=== PATIENT | female | born 1960 | race Caucasian/White ===

== ENCOUNTER 2017-05-04 10:19 | Day surgery (SDC) | payer BC ==
[2017-04-30 10:04] VITALS: BMI 31.4
[~2017-05-04 10:19] MED LIST: LACTATED RINGERS 1,000 ML IV SCH; LIDOCAINE 1% 20 ML VIAL (10MG/ML) FOR IV START INTRADERMA PRN
[2017-05-04] MEDS ORDERED: LACTATED RINGERS 1,000 ML IV ONE (10:42)
[2017-05-04 10:48] VITALS: RESP 18; TEMP 98.1
[2017-05-04 10:57] LABS: Basophils # (A) 0.1 k/uL (0-0.2); Basophils % (A) 1 %; Eosinophils # (A) 0.2 k/uL (0-0.7); Eosinophils % (A) 2 %; HCT 47.3 % (34.0-46.0); HGB 15.8 gm/dL (11.4-16.0); Lymphocytes # (A) 3.8 k/uL (1.0-4.8); Lymphocytes % (A) 34 %; MCHC 33.5 g/dL (31.0-37.0); MCV 86.7 fL (80.0-100.0); Mean Platelet Volume 8.6; Monocytes # (A) 0.4 k/uL (0-1.0); Monocytes % (A) 4 %; Neutrophils # (A) 6.3 k/uL (1.3-7.7); Neutrophils % (A) 58 %; Platelet Count 241 k/uL (150-450); RBC 5.46 m/uL (3.80-5.40); RDW 14.2 % (11.5-15.5)
[2017-05-04 11:07] LABS: Anion Gap 13 mmol/L; Blood Urea Nitrogen 8 mg/dL (7-17); Calcium 10.1 mg/dL (8.4-10.2); Carbon Dioxide 25 mmol/L (22-30); Chloride 105 mmol/L (98-107); Glucose 216 mg/dL (74-99); Sodium 143 mmol/L (137-145)
[2017-05-04] MEDS ORDERED: PROPOFOL 10 MG/ML 20 ML VIAL IV ONE (12:51)
--- NOTE | 2017-05-04 13:20 | P.OP ---
Date of Procedure: 05/04/17 Preoperative Diagnosis: Change in bowel habits, blood per rectum Postoperative Diagnosis: Scattered diverticuli, internal hemorrhoids, inflamed bowel Procedure(s) Performed: Colonoscopy with biopsies Anesthesia: MAC Surgeon: Lurdes Palafox Estimated Blood Loss (ml): 0 IV fluids (ml): 200 Pathology: other (Cold biopsy is 70 cm, 20cm, and right colon) Condition: stable Disposition: PACU Indications for Procedure: Change in bowel habits, mucus and stool, blood in stool Operative Findings: Inflamed bowel, diverticuli, internal hemorrhoids Description of Procedure: The patient was taken to the endoscopy suite and following sedation the right rectal exam was performed. She was placed in the left lateral decubitus position. Rectal exam patient was started of concern to tone no masses. Colonoscope was passed through the anus into the rectum. Was passed through the sigmoid colon up to splenic flexure transverse colon hepatic flexure right colon down to the area of the cecum. Approximately 12 8 minutes were taken to withdraw the scope from the cecum to the rectum. The mucosa appeared to be somewhat inflamed and boggy and a random biopsy was obtained at the area of the ileocecal valve. Following this is a scope was withdrawn careful observation of the mucosa did not reveal any polypoid lesions or other mucosal lesions of concern. The second random biopsy was obtained at 70 cm is again the mucosa. Boggy and somewhat inflamed. As the scope was withdrawn no lesions of concern were otherwise noted in the right colon or in the transverse colon. No other lesions of concern were noted in the left colon. The patient was noted to have some intermittent diverticuli in the sigmoid colon and again there was some bogginess and irritation of the colon and random biopsy was obtained at 20 cm. These were all cold biopsies. The scope was brought down into the rectum where it was retroflexed internal hemorrhoids were identified. No tumors or masses were identified. The patient was noted to have mucus throughout the colon. Impression/plan: 1. Await irritation of colon with some mucus throughout the colon 2. Diverticuli 3. Internal hemorrhoids Plan: 1. Await biopsies consider GI consultation with possible upper GI workup uncertain as to the etiology of the meat mucus 2. Conservative management of diverticuli 3. Somewhat large internal hemorrhoids will discuss with patient further therapy if she continues to have bleeding.
--- NOTE | 2017-05-04 13:21 | P.DS ---
Providers Attending physician: Lurdes Palafox Primary care physician: Crow Pollard Plan - Discharge Summary New Discharge Prescriptions: No Action Vitamin C 1 tab PO DAILY Vitamin B Complex 1 each PO DAILY Axis-3 Fatty Acids/Fish Oil [Fish Oil 1,000 mg Softgel] 1 each PO DAILY Iron (Unknown Dose) 1 tab PO DAILY Discharge Medication List Iron (Unknown Dose) 1 tab PO DAILY 04/30/17 [History] Axis-3 Fatty Acids/Fish Oil [Fish Oil 1,000 mg Softgel] 1 each PO DAILY [History] Vitamin B Complex 1 each PO DAILY 04/30/17 [History] Vitamin C 1 tab PO DAILY 04/30/17 [History] Follow up Appointment(s)/Referral(s): Lurdes Palafox MD [STAFF PHYSICIAN] - 1 Week Activity/Diet/Wound Care/Special Instructions: Do not drive today Discharge Disposition: HOME SELF-CARE
[2017-05-04 13:52] VITALS: BP 120/64; PULSE 80
== END 2017-05-04 14:13 | disposition home or self-care (01) ==
LOC: MERGE 10:19 → ORWHC2ENDO 10:19
PROVIDERS: ATTEND Surgery
DX: K63.5 Polyp of colon (principal); K57.30 Diverticulosis of large intestine without perforation or abscess without bleeding; K64.8 Other hemorrhoids; F17.200 Nicotine dependence, unspecified, uncomplicated; Z90.10 Acquired absence of unspecified breast and nipple
CPT/HCPCS: 81025; 88305; 80048; 85025; 45380; J2704

== ENCOUNTER 2017-05-08 01:25 | Emergency (ER) | payer BC ==
[2017-05-08] MEDS ORDERED: ORPHENADRINE 30 MG/ML 2 ML VIAL IVP STA (01:46)
[2017-05-08] MEDS ORDERED: ONDANSETRON 4 MG/2 ML VIAL IVP STA (01:46)
[2017-05-08] MEDS ORDERED: KETOROLAC 30 MG/ML 1 ML VIAL IVP STA ×2 (01:46→02:20)
[2017-05-08] MEDS ORDERED: SODIUM CHLORIDE 0.9% 1,000 ML IV STA ×2 (01:47→02:57)
--- NOTE | 2017-05-08 01:57 | ED ---
General Adult HPI - General Chief complaint: Abdominal Pain Stated complaint: flank pain Time Seen by Provider: 05/08/17 01:35 Source: patient, RN notes reviewed Mode of arrival: wheelchair Limitations: no limitations - History of Present Illness Initial comments: This is a 56-year-old female who presents to the emergency department with chief complaint of right flank pain. Patient states that she has been experiencing right flank pain for the past 3 days and that it has progressively worsened in intensity. Patient states the pain is positional, increasing with movement and lying down. Patient states that the pain radiates to her upper abdomen. She denies any urinary symptoms such as dysuria, increased frequency or hematuria. She denies any recent injuries or falls. She does complain of associated nausea and vomiting. She states that she is been eating and drinking well. She states that she has had on and off diarrhea and constipation. Patient states that the pain is constant and is unable to describe it. On May 04 patient underwent a colonoscopy for a change in bowel habits and blood per rectum. She was given the postop diagnosis of diverticuli, inflamed bowel and internal hemorrhoids. Denies fever, chills, chest pain, shortness of breath, abdominal pain, numbness or tingling, headache or vision changes. - Related Data Home Medications Medication Instructions Recorded Confirmed Iron (Unknown Dose) 1 tab PO DAILY 04/30/17 05/04/17 Roberta-3 Fatty Acids/Fish Oil [Fish 1 each PO DAILY 04/30/17 05/04/17 Oil 1,000 mg Softgel] Vitamin B Complex 1 each PO DAILY 04/30/17 05/04/17 Vitamin C 1 tab PO DAILY 04/30/17 05/04/17 Previous Rx's Medication Instructions Recorded HYDROcodone/APAP 5-325MG [[place] 5] 1 each PO Q6HR PRN #12 tab 05/08/17 Ibuprofen 600 mg PO Q6HR #30 tablet 05/08/17 metFORMIN HCL [Glucophage] 500 mg PO BID #30 tab 05/08/17 Allergies Allergy/AdvReac Type Severity Reaction Status Date / Time No Known Allergies Allergy Verified 04/30/17 09:46 Review of Systems ROS Statement: Those systems with pertinent positive or pertinent negative responses have been documented in the HPI. ROS Other: All systems not noted in ROS Statement are negative. Past Medical History Past Medical History: Osteoarthritis (OA) Additional Past Medical History / Comment(s): BACK PAIN., STATES WT LOSS OF OVER 30 # IN THE LAST MONTH, FEELS FATIGUED & STOOLS HAVE MUCUS WITH BLOOD AND ABDOMINAL PAIN . STATES RECENT DIZZINESS ALSO. History of Any Multi-Drug Resistant Organisms: None Reported Past Surgical History: Back Surgery, Breast Surgery Additional Past Surgical History / Comment(s): PARTIAL RIGHT MASTECTOMY (FALSE POSITIVE) Past Anesthesia/Blood Transfusion Reactions: No Reported Reaction Past Psychological History: No Psychological Hx Reported Smoking Status: Current every day smoker Past Alcohol Use History: Rare Past Drug Use History: None Reported - Past Family History Daughter(s) Additional Family Medical History / Comment(s): PRE- OVARIAN CANCER General Exam - General Exam Comments Initial Comments: General: Awake and alert, well-developed; moaning and groaning throughout examination. Appears to be uncomfortable and in pain. Patient most comfortable sitting upright on the edge of ED stretcher. is at bedside. HEENT: Head atraumatic, normocephalic. Pupils are equal, round and reactive to light. Extraocular movements intact. Oropharynx moist without erythema or exudate. Neck: Supple. Normal ROM. No tenderness. Back: Tenderness on palpation of right flank. There is a tender myofascial nodule at right flank. Cardiovascular: Regular rate and rhythm. No murmurs, rubs or gallops. Chest symmetrical. Respiratory: Lungs clear to auscultation bilaterally. No wheezes, rales or rhonchi. Normal respiratory effort with no use of accessory muscles. Abdomen: Soft, non-tender, non-distended. No rigidity, rebound or guarding. Normal bowel sounds in all 4 quadrants. Musculoskeletal: Normal ROM, no tenderness bilateral upper and lower extremities. Ambulating hunched over due to back pain. Pedal pulses are 2+ equal and palpable bilaterally. Skin: [place], warm and dry without rashes or lesions. Neurological: Alert and oriented x3. CN II-XII grossly intact. Speech is fluent and answers are appropriate. No focal neuro deficits. Psychiatric: Normal mood and affect. No overt signs of depression or anxiety noted. Limitations: no limitations Course Vital Signs 05/08/17 05/08/17 01:30 03:19 Temperature 97.2 F L Pulse Rate 102 H 80 Respiratory 20 20 Rate Blood Pressure 138/87 131/88 O2 Sat by Pulse 96 97 Oximetry Medical Decision Making - Medical Decision Making This is a 56-year-old female who presents to the emergency department for evaluation of right flank pain. Patient denied any recent falls or injuries. She denied any urinary symptoms such as dysuria, hematuria or increased frequency. She did complain of associated nausea and vomiting. Denies any fever or chills. Pain is made worse with movement and lying down. CBC revealed a white count of 13.6 with a left shift at 8.0. Patient's lipase was 1608 and alkaline phosphatase 170 up from 154 on 04/14/2017. Patient is a glucose of 380. She denies any history of diabetes, however looking back on her previous labs patient has had a consistent elevation of glucose. She was given 2 L of normal saline as well as 6 units of Humulin. KUB of abdomen revealed no acute abnormalities. Lumbar spine x-ray revealed spondylotic changes with a possible cholesterol calcified gallstone. Computed tomography scan without contrast revealed cholelithiasis. Patient given fluid resuscitation and pain medication while in the emergency department. Patient appears significantly improved. She states that she feels much better. This case was discussed with attending physician Dr. Silverman who also evaluated the patient. She will be discharged home. Recommended follow-up with her primary care provider. Right flank pain appears to be in relation to a musculoskeletal issue as tenderness is localized and is positional. Lipase and alkaline phosphatase likely due to finding of cholelithiasis. Recommended patient be started on metformin for her chronic increased glucose. Patient is in agreement. She will be provided a prescription for the next 2 weeks until she is able to follow-up with her primary care provider. Patient is in no acute distress at this time. She is in agreement with plan and voices understanding. All questions were answered. - Lab Data Result diagrams: 05/08/17 01:50 05/08/17 01:50 Lab Results 05/08/17 05/08/17 05/08/17 Range/Units 01:50 01:50 02:16 WBC 13.6 H (3.8-10.6) k/uL RBC 5.01 (3.80-5.40) m/uL Hgb 14.7 (11.4-16.0) gm/dL Hct 44.9 (34.0-46.0) % MCV 89.7 (80.0-100.0) fL MCH 29.4 (25.0-35.0) pg MCHC 32.8 (31.0-37.0) g/dL RDW 12.6 (11.5-15.5) % Plt Count 209 (150-450) k/uL Neutrophils % 59 % Lymphocytes % 33 % Monocytes % 4 % Eosinophils % 2 % Basophils % 1 % Neutrophils # 8.0 H (1.3-7.7) k/uL Lymphocytes # 4.4 (1.0-4.8) k/uL Monocytes # 0.5 (0-1.0) k/uL Eosinophils # 0.3 (0-0.7) k/uL Basophils # 0.1 (0-0.2) k/uL Sodium 139 (137-145) mmol/L Potassium 4.0 (3.5-5.1) mmol/L Chloride 106 (98-107) mmol/L Carbon Dioxide 20 L (22-30) mmol/L Anion Gap 13 mmol/L BUN 7 (7-17) mg/dL Creatinine 0.60 (0.52-1.04) mg/dL Est GFR (MDRD) Af Amer >60 (>60 ml/min/1.73 sqM) Est GFR (MDRD) Non-Af >60 (>60 ml/min/1.73 sqM) Glucose 380 H (74-99) mg/dL POC Glucose (mg/dL) (75-99) mg/dL POC Glu Web Development Consultant ID Calcium 9.9 (8.4-10.2) mg/dL Total Bilirubin 0.3 (0.2-1.3) mg/dL AST 23 (14-36) U/L ALT 43 (9-52) U/L Alkaline Phosphatase 170 H (38-126) U/L Total Protein 6.9 (6.3-8.2) g/dL Albumin 4.2 (3.5-5.0) g/dL Amylase 55 (30-110) U/L Lipase 1608 H (23-300) U/L Urine Color Light Yellow Urine Appearance Clear (Clear) Urine pH 6.0 (5.0-8.0) Ur Specific [place] 1.019 (1.001-1.035) Urine Protein Negative (Negative) Urine Glucose (UA) 4+ H (Negative) Urine Ketones Negative (Negative) Urine Blood Negative (Negative) Urine Nitrite Positive H (Negative) Urine Bilirubin Negative (Negative) Urine Urobilinogen <2.0 (<2.0) mg/dL Ur Leukocyte Esterase Negative (Negative) Urine RBC <1 (0-5) /hpf Urine WBC 6 H (0-5) /hpf Ur Squamous Epith Cells 5 H (0-4) /hpf Urine Bacteria Moderate H (None) /hpf Urine Mucus Rare H (None) /hpf 05/08/17 Range/Units 03:06 WBC (3.8-10.6) k/uL RBC (3.80-5.40) m/uL Hgb (11.4-16.0) gm/dL Hct (34.0-46.0) % MCV (80.0-100.0) fL MCH (25.0-35.0) pg MCHC (31.0-37.0) g/dL RDW (11.5-15.5) % Plt Count (150-450) k/uL Neutrophils % % Lymphocytes % % Monocytes % % Eosinophils % % Basophils % % Neutrophils # (1.3-7.7) k/uL Lymphocytes # (1.0-4.8) k/uL Monocytes # (0-1.0) k/uL Eosinophils # (0-0.7) k/uL Basophils # (0-0.2) k/uL Sodium (137-145) mmol/L Potassium (3.5-5.1) mmol/L Chloride (98-107) mmol/L Carbon Dioxide (22-30) mmol/L Anion Gap mmol/L BUN (7-17) mg/dL Creatinine (0.52-1.04) mg/dL Est GFR (MDRD) Af Amer (>60 ml/min/1.73 sqM) Est GFR (MDRD) Non-Af (>60 ml/min/1.73 sqM) Glucose (74-99) mg/dL POC Glucose (mg/dL) 340 H (75-99) mg/dL POC Glu Web Development Consultant RITA Selina Ulrich Calcium (8.4-10.2) mg/dL Total Bilirubin (0.2-1.3) mg/dL AST (14-36) U/L ALT (9-52) U/L Alkaline Phosphatase (38-126) U/L Total Protein (6.3-8.2) g/dL Albumin (3.5-5.0) g/dL Amylase (30-110) U/L Lipase (23-300) U/L Urine Color Urine Appearance (Clear) Urine pH (5.0-8.0) Ur Specific [place] (1.001-1.035) Urine Protein (Negative) Urine Glucose (UA) (Negative) Urine Ketones (Negative) Urine Blood (Negative) Urine Nitrite (Negative) Urine Bilirubin (Negative) Urine Urobilinogen (<2.0) mg/dL Ur Leukocyte Esterase (Negative) Urine RBC (0-5) /hpf Urine WBC (0-5) /hpf Ur Squamous Epith Cells (0-4) /hpf Urine Bacteria (None) /hpf Urine Mucus (None) /hpf - Radiology Data Radiology results: report reviewed X-ray KUB impression: Nonacute abdomen. X-ray lumbar spine impression: Spondylotic changes in the lower lumbar spine. Possible cholesterol calcified gallstones. CT abdomen and pelvis without IV contrast impression: 1. Cholelithiasis. Consider right upper quadrant ultrasound as clinically warranted to evaluate for cholecystitis. 2. No evidence of renal stone. Disposition Clinical Impression: Cholelithiasis, Right flank pain Disposition: HOME SELF-CARE Condition: Good Instructions: Flank Pain (ED), Gallstones (ED) Additional Instructions: Please take medications as prescribed. Please follow up with primary care provider within 1-2 days. Return to emergency department if symptoms should worsen or any concerns arise. Prescriptions: HYDROcodone/APAP 5-325MG [[place] 5] 1 each PO Q6HR PRN #12 tab PRN Reason: Pain Ibuprofen 600 mg PO Q6HR #30 tablet metFORMIN HCL [Glucophage] 500 mg PO BID #30 tab Referrals: Crow Pollard MD [Primary Care Provider] - 1-2 days Time of Disposition: 03:54
[2017-05-08 02:00] LABS: Basophils # (A) 0.1 k/uL (0-0.2); Basophils % (A) 1 %; Eosinophils # (A) 0.3 k/uL (0-0.7); Eosinophils % (A) 2 %; HCT 44.9 % (34.0-46.0); HGB 14.7 gm/dL (11.4-16.0); Lymphocytes # (A) 4.4 k/uL (1.0-4.8); Lymphocytes % (A) 33 %; MCH 29.4 pg (25.0-35.0); MCHC 32.8 g/dL (31.0-37.0); MCV 89.7 fL (80.0-100.0); Mean Platelet Volume 7.8; Monocytes # (A) 0.5 k/uL (0-1.0); Monocytes % (A) 4 %; Neutrophils % (A) 59 %; Platelet Count 209 k/uL (150-450); RBC 5.01 m/uL (3.80-5.40); RDW 12.6 % (11.5-15.5); WBC 13.6 k/uL (3.8-10.6)
[2017-05-08 02:11] LABS: ALT 43 U/L (9-52); AST 23 U/L (14-36); Albumin 4.2 g/dL (3.5-5.0); Alkaline Phosphatase 170 U/L (38-126); Amylase 55 U/L (30-110); Anion Gap 13 mmol/L; Blood Urea Nitrogen 7 mg/dL (7-17); Calcium 9.9 mg/dL (8.4-10.2); Carbon Dioxide 20 mmol/L (22-30); Chloride 106 mmol/L (98-107); Glucose 380 mg/dL (74-99); Lipase 1608 U/L (23-300); Sodium 139 mmol/L (137-145); Total Bilirubin 0.3 mg/dL (0.2-1.3); Total Protein 6.9 g/dL (6.3-8.2)
--- NOTE | 2017-05-08 02:25 | XR ---
EXAMINATION TYPE: XR KUB DATE OF EXAM: 05/08/2017 COMPARISON: NONE HISTORY: Flank pain TECHNIQUE: 2 views FINDINGS: Bowel gas pattern is normal. There is no sign of intestinal obstruction or pneumoperitoneum . Fecal pattern is normal. There is no sign of a mass. I see no pathologic calcifications over the ki dneys. IMPRESSION: Nonacute abdomen.
--- NOTE | 2017-05-08 02:31 | XR ---
EXAMINATION TYPE: XR lumbar spine 2 or 3V DATE OF EXAM: 05/08/2017 COMPARISON: NONE HISTORY: Back pain TECHNIQUE: 3 views FINDINGS: lumbar vertebra have fairly normal alignment. There are some calcifications over the right upper quad rant could be calcified gallstones. There is narrowing of the L4-5 and L5-S1 disc spaces with spurrin g. There is no compression fracture. Sacroiliac joints are intact. There is possible right-sided lami nectomy at L4-L5. IMPRESSION: Spondylotic changes in the lower lumbar spine. Possible cholesterol calcified gallstones.
[2017-05-08 02:43] LABS: Appearance,Urine Clear (Clear); Bacteria,Urine Moderate /hpf; Bilirubin,Urine Negative (Negative); Blood,Urine Negative (Negative); Color,Urine Light Yellow; Glucose,Urine (UA) 4+ (Negative); Ketones,Urine Negative (Negative); Leukocyte Esterase,Urine Negative (Negative); Mucus,Urine Rare /hpf; Nitrite,Urine Positive (Negative); Protein,Urine Negative (Negative); RBC,Urine <1 /hpf (0-5); Specific Gravity,Urine 1.019 (1.001-1.035); Squamous Epithelial Cell,Urine 5 /hpf (0-4); Urobilinogen,Urine <2.0 mg/dL (<2.0); WBC,Urine 6 /hpf (0-5)
[2017-05-08] MEDS ORDERED: INSULIN REGULAR 100 UNIT/ML VIAL SQ ONE (02:55)
[2017-05-08] MEDS ORDERED: HYDROmorphone 0.5 MG/0.5 ML SYRINGE IVP STA (03:06)
[2017-05-08 03:09] LABS: Glucose,Whole Blood 340 mg/dL (75-99)
--- NOTE | 2017-05-08 03:23 | CT ---
EXAM: CT Abdomen and Pelvis Without Intravenous Contrast CLINICAL HISTORY: Reason: flank pain TECHNIQUE: Axial computed tomography images of the abdomen and pelvis without intravenous contrast. CTDI is 16.6 mGy and DLP is 772.4 mGy-cm. This CT exam was performed using one or more of the following dose reduction techniques: automated exposure control, adjustment of the mA and/or kV according to patient size, and/or use of iterative reconstruction technique. COMPARISON: None. FINDINGS: Lower thorax: No acute findings. ABDOMEN: Liver: Unremarkable. Gallbladder and bile ducts: Cholelithiasis. No ductal dilation. Pancreas: Unremarkable. No ductal dilation. Spleen: Unremarkable. No splenomegaly. Adrenals: Unremarkable. No mass. Kidneys and ureters: Unremarkable. No obstructing stones. No hydronephrosis. Stomach and bowel: Unremarkable. No obstruction. No mucosal thickening. Appendix: No findings to suggest acute appendicitis. PELVIS: Bladder: Unremarkable. No stones. Reproductive: Unremarkable as visualized. ABDOMEN and PELVIS: Intraperitoneal space: Unremarkable. No free air. No significant fluid collection. Bones/joints: No acute osseous abnormality. Multilevel degenerative disc disease and facet arthrosis is seen throughout the lumbar spine. No dislocation. Soft tissues: Unremarkable. Vasculature: Atherosclerotic calcifications seen throughout the abdominal aorta. No abdominal aortic aneurysm. Lymph nodes: Unremarkable. No enlarged lymph nodes. IMPRESSION: 1. Cholelithiasis. Consider right upper quadrant ultrasound as clinically warranted to evaluate for cholecystitis. 2. No evidence of renal stone.
[2017-05-08 03:54] LABS: Glucose,Whole Blood 271 mg/dL (75-99)
[2017-05-08 04:08] VITALS: BP 100/64; PULSE 76; RESP 18; TEMP 97.7
== END 2017-05-08 04:07 | disposition home or self-care (01) ==
LOC: EC 01:25
DX: K80.20 Calculus of gallbladder without cholecystitis without obstruction (principal); R10.11 Right upper quadrant pain; M47.816 Spondylosis without myelopathy or radiculopathy, lumbar region; R74.0 Nonspecific elevation of levels of transaminase and lactic acid dehydrogenase [LDH]; M62.89 Other specified disorders of muscle; R11.2 Nausea with vomiting, unspecified; R19.7 Diarrhea, unspecified; K59.00 Constipation, unspecified; F17.200 Nicotine dependence, unspecified, uncomplicated; Z79.899 Other long term (current) drug therapy; Z98.890 Other specified postprocedural states
CPT/HCPCS: 36415; 80053; 82150; 83690; 85025; 81001; 72100; 74018; 74176; 99285; 96374; 96375 ×3; 96376; 96361 ×2; J2360; J2405; J1885; J1170

== ENCOUNTER → 2017-05-17 | Outpatient (CLI) | payer BC ==
[2017-05-17 17:20] LABS: HCT 45.7 % (34.0-46.0); HGB 14.5 gm/dL (11.4-16.0); MCH 28.7 pg (25.0-35.0); MCHC 31.8 g/dL (31.0-37.0); MCV 90.4 fL (80.0-100.0); Mean Platelet Volume 8.3; Platelet Count 226 k/uL (150-450); RBC 5.05 m/uL (3.80-5.40); RDW 13.7 % (11.5-15.5); WBC 12.2 k/uL (3.8-10.6)
[2017-05-17 17:32] LABS: Albumin 4.3 g/dL (3.5-5.0); Bilirubin, Delta 0.2 mg/dL (0.0-0.2); Bilirubin,Unconjugated 0.1 mg/dL (0.0-1.1); Total Bilirubin 0.3 mg/dL (0.2-1.3); Total Protein 6.9 g/dL (6.3-8.2)
== END | disposition home or self-care (01) ==
LOC: LABWHC1 16:30
PROVIDERS: ATTEND Surgery
DX: R19.4 Change in bowel habit (principal)
CPT/HCPCS: 36415; 80076; 83690; 85027

== ENCOUNTER 2017-07-16 10:31 | Day surgery (SDC) | payer BC ==
[2017-07-15 08:35] VITALS: BMI 30.4
[~2017-07-16 10:31] MED LIST changes: +DEXAMETHASONE SOD PHOSPHATE 10 MG/ML 1 ML VIAL IV ONE; +HEPARIN SODIUM,PORCINE 5,000 UNIT/ML 1 ML VIAL SQ ONE; -LIDOCAINE 1% 20 ML VIAL (10MG/ML) FOR IV START INTRADERMA PRN; +MIDAZOLAM 2 MG/2 ML VIAL IV PRN; +ONDANSETRON 4 MG/2 ML VIAL IVP ONE; +SCOPOLAMINE 1.5MG/72HR PATCH TRANSDERM ONE; +ceFAZolin IN SWFI 2 GM/20 ML SYRINGE IVP ONE; +fentaNYL (PF) 50 MCG/ML 2 ML AMP IV PRN
--- NOTE | 2017-07-16 12:22 | P.GSHP ---
History of Present Illness H&P Date: 07/16/17 Chief Complaint: Right upper quadrant pain This a 56-year-old female who's had was run quadrant pain. Her recent CAT scan shows evidence of cholelithiasis. She will stay for laparoscopic ostectomy for subhepatic cholelithiasis and chronic cholecystitis. Past Medical History Past Medical History: Diabetes Mellitus, Hypertension, Osteoarthritis (OA) Additional Past Medical History / Comment(s): BACK PAIN., GALLBLADDER DISORDER History of Any Multi-Drug Resistant Organisms: None Reported Past Surgical History: Back Surgery, Breast Surgery, Orthopedic Surgery Additional Past Surgical History / Comment(s): PARTIAL RIGHT MASTECTOMY (FALSE POSITIVE), COLONOSCOPY, RT ROTATOR CUFF REPAIR Past Anesthesia/Blood Transfusion Reactions: No Reported Reaction Smoking Status: Current every day smoker - Past Family History Daughter(s) Additional Family Medical History / Comment(s): PRE- OVARIAN CANCER Medications and Allergies Home Medications Medication Instructions Recorded Confirmed Type Vitamin B Complex 1 each PO DAILY 04/30/17 07/15/17 History HYDROcodone/APAP 5-325MG [[place] 5] 1 each PO Q6HR PRN #12 tab 05/08/17 07/15/17 Rx metFORMIN HCL [Glucophage] 500 mg PO BID #30 tab 05/08/17 07/15/17 Rx Ascorbic Acid [Vitamin C] 500 mg PO DAILY 07/15/17 07/15/17 History Fish Oil/Dha/Epa [Fish Oil 1,200 2 tab PO DAILY 07/15/17 07/15/17 History mg Fish Oil] Insulin Degludec [Tresiba 10 unit SQ DAILY 07/15/17 07/15/17 History Flextouch U-100] Lisinopril [Zestril] 5 mg PO HS 07/15/17 07/15/17 History Zinc 50 mg PO DAILY 07/15/17 07/15/17 History Allergies Allergy/AdvReac Type Severity Reaction Status Date / Time bee venom protein (honey bee) Allergy Anaphylaxis Verified 07/15/17 08:28 Surgical - Exam - General well developed, no distress - Eyes PERRL - ENT normal pinna - Neck no masses - Respiratory normal expansion - Cardiovascular Rhythm: regular - Abdomen Abdomen: soft, non tender Assessment and Plan Assessment: Cholelithiasis We will perform laparoscopic cholecystectomy.
[2017-07-16 12:46] LABS: Glucose,Whole Blood 126 mg/dL (75-99)
[2017-07-16] MEDS ORDERED: LIDOCAINE 1% 20 ML VIAL (10MG/ML) FOR IV START INTRADERMA ONE (12:46)
[2017-07-16] MEDS ORDERED: GLYCOPYRROLATE 0.2 MG/ML 2 ML VIAL ONE (13:27)
[2017-07-16] MEDS ORDERED: ROCURONIUM BROMIDE 10 MG/ML 10 ML VIAL IV ONE (13:27)
[2017-07-16] MEDS ORDERED: LIDOCAINE 1% INJ 10MG/ML (20 ML MDV) ONE (13:27)
[2017-07-16] MEDS ORDERED: MIDAZOLAM 2 MG/2 ML VIAL ONE (13:27)
[2017-07-16] MEDS ORDERED: fentaNYL (PF) 50 MCG/ML 2 ML AMP ONE (13:27)
[2017-07-16] MEDS ORDERED: PROPOFOL 10 MG/ML 20 ML VIAL IV ONE (13:27)
[2017-07-16] MEDS ORDERED: NEOSTIGMINE 1 MG/ML 10 ML VIAL ONE (13:27)
[2017-07-16] MEDS ORDERED: SUCCINYLCHOLINE CHLORIDE 100 MG/5 ML SYR IV ONE (13:27)
[2017-07-16] MEDS ORDERED: BUPIVACAINE (PF) 0.25% 30 ML VIAL SQ ONE (13:35)
--- NOTE | 2017-07-16 13:58 | P.OP ---
Date of Procedure: 07/16/17 Preoperative Diagnosis: Cholecystitis Postoperative Diagnosis: Cholecystitis Procedure(s) Performed: Laparoscopic cholecystectomy Anesthesia: JANET Surgeon: Tramaine Burgos Estimated Blood Loss (ml): 5 Pathology: other (Gallbladder) Condition: stable Disposition: PACU Description of Procedure: The patient was placed on the operating table. The patient received a general endotracheal tube anesthesia. The patients abdomen was prepped and draped in the usual sterile fashion. Through an infraumbilical stab incision, the fascia of the anterior abdominal wall was grasped with a pair of Kochers and then the Veress needle was placed in the peritoneal cavity. Position of the Veress needle was confirmed with positive drop test. The abdomen was then insufflated. After adequate insufflation, the 10 mm trocar was placed in the peritoneal cavity. Following this the laparoscope was placed in the peritoneal cavity. The patient was placed in the head-up, right side up position and then a 5 mm trocar was placed in the right lateral and right subcostal position under direct visualization. A 8 mm trocar was placed in the epigastric position. The gallbladder was grasped in the fundus and infundibulum. Traction on the gallbladder was placed in the lateral and the cephalad positions. The triangle of Calot was visualized.. The cystic duct was bluntly dissected until the union of the cystic duct and common bile duct was seen. The cystic duct was then divided and sealed with the Harmonic scissors. A PDS Endoloop was then placed throughout the cystic duct stump. The cystic artery divided and sealed with the Harmonic scissors. The gallbladder was then removed from the liver bed using Harmonic scissors. The gallbladder was then extracted through the epigastric port site. Operative field was checked for any bleeding spots and Harmonic scissors was used to coagulate the liver bed. The abdomen was irrigated. The trocars were removed. The skin was closed using interrupted 3-0 Vicryl suture. Dermabond dressing were applied. The patient tolerated the procedure well.
[2017-07-16] MEDS ORDERED: KETOROLAC 30 MG/ML 1 ML VIAL IVP ONE (14:02)
[2017-07-16 14:04] VITALS: TEMP 97.2
[2017-07-16] MEDS: MEPERIDINE 50 MG/ML SYRINGE IVP ONE ×2 (14:07→14:22)
[2017-07-16] MEDS: diphenhydrAMINE 50 MG/ML 1 ML VIAL IVP ONE ×2 (14:11→14:22)
[2017-07-16 14:33] LABS: Glucose,Whole Blood 160 mg/dL (75-99)
[2017-07-16 15:45] VITALS: RESP 18
[2017-07-16] MEDS ORDERED: HYDROcodone/APAP 7.5-325MG 1 EACH TAB PO ONE (15:48)
[2017-07-16 16:26] VITALS: BP 132/84; PULSE 80
== END 2017-07-16 16:47 | disposition home or self-care (01) ==
LOC: OR 10:31
PROVIDERS: ATTEND Surgery
DX: K80.10 Calculus of gallbladder with chronic cholecystitis without obstruction (principal); E11.9 Type 2 diabetes mellitus without complications; I10 Essential (primary) hypertension; M19.90 Unspecified osteoarthritis, unspecified site; K21.9 Gastro-esophageal reflux disease without esophagitis; Z79.84 Long term (current) use of oral hypoglycemic drugs; Z79.4 Long term (current) use of insulin; Z79.899 Other long term (current) drug therapy; Z91.030 Bee allergy status; F17.210 Nicotine dependence, cigarettes, uncomplicated
CPT/HCPCS: 88304; 47562; J2250; J1200; J1100; J2710; J2175; J2405; J2001; J3010; J1885; J0330; J2704; J0690

== ENCOUNTER 2017-07-29 09:01 | Inpatient (IN) | payer BC ==
[2017-07-29] MEDS ORDERED: ONDANSETRON 4 MG/2 ML VIAL IVP STA (09:16)
[2017-07-29] MEDS ORDERED: SODIUM CHLORIDE 0.9% 2,000 ML IV STA (09:16)
[2017-07-29 09:42] LABS: Basophils # (A) 0.1 k/uL (0-0.2); Basophils % (A) 0 %; Eosinophils # (A) 0.1 k/uL (0-0.7); Eosinophils % (A) 1 %; HCT 42.9 % (34.0-46.0); HGB 15.2 gm/dL (11.4-16.0); Lymphocytes # (A) 3.4 k/uL (1.0-4.8); Lymphocytes % (A) 25 %; MCH 30.1 pg (25.0-35.0); MCHC 35.5 g/dL (31.0-37.0); MCV 84.7 fL (80.0-100.0); Mean Platelet Volume 7.9; Monocytes # (A) 0.5 k/uL (0-1.0); Monocytes % (A) 4 %; Neutrophils # (A) 9.5 k/uL (1.3-7.7); Neutrophils % (A) 69 %; Platelet Count 269 k/uL (150-450); RBC 5.07 m/uL (3.80-5.40); RDW 12.7 % (11.5-15.5); WBC 13.7 k/uL (3.8-10.6)
[2017-07-29 09:55] LABS: ALT 44 U/L (9-52); AST 28 U/L (14-36); Albumin 4.5 g/dL (3.5-5.0); Alkaline Phosphatase 137 U/L (38-126); Amylase 34 U/L (30-110); Anion Gap 18 mmol/L; Blood Urea Nitrogen 18 mg/dL (7-17); Calcium 10.5 mg/dL (8.4-10.2); Carbon Dioxide 22 mmol/L (22-30); Chloride 100 mmol/L (98-107); Glucose 212 mg/dL (74-99); Lipase 102 U/L (23-300); Potassium 3.5 mmol/L (3.5-5.1); Sodium 140 mmol/L (137-145); Total Bilirubin 0.6 mg/dL (0.2-1.3); Total Protein 7.2 g/dL (6.3-8.2)
[2017-07-29] MEDS ORDERED: MORPHINE SULFATE 4MG/4ML SYRG IVP ONE (10:12)
[2017-07-29] MEDS ORDERED: KETOROLAC 30 MG/ML 1 ML VIAL IVP STA (10:12)
--- NOTE | 2017-07-29 10:19 | XR ---
EXAMINATION TYPE: XR chest 2V DATE OF EXAM: 07/29/2017 COMPARISON: 02/16/2009 TECHNIQUE: PA and lateral views submitted. HISTORY: Pain FINDINGS: The lungs are clear and there is no pneumothorax, pleural effusion, or focal pneumonia. There is a irregular nodular density in the right upper lobe measuring 7 mm. Hyperinflation suggests COPD. Hyper trophic and degenerative change of the spine noted. Surgical clips are seen overlying the right breas t and chest wall. IMPRESSION: 1. Findings are suspicious for an irregular 7 mm nodule right upper lobe recommend CT scan of the [facility] st...
--- NOTE | 2017-07-29 10:20 | XR ---
EXAMINATION TYPE: XR KUB DATE OF EXAM: 07/29/2017 COMPARISON: 05/08/2017 HISTORY: Abdominal pain, nausea and vomiting TECHNIQUE: One view abdominal series FINDINGS: The osseous structures are intact. The bowel gas pattern is nonspecific. Lung bases are clear. Punct ate calcification overlying the lower pole the left kidney. Sclerosis involving the SI joint suggesti ve of sacroiliitis. Hypertrophic changes of the acetabulum. Prominent small bowel loops are seen in t he left abdomen. IMPRESSION: 1. Nonspecific abdomen. Paucity of bowel gas with prominent small bowel loops in the left abdomen an d pelvis. Correlate for an enteritis or ileus. Partial obstruction not entirely excluded.
[2017-07-29] MEDS ORDERED: RX INFO: IV CONTRAST WAS GIVEN 1 EACH MISC MISCELLANE PRN (10:27)
--- NOTE | 2017-07-29 11:14 | CT ---
EXAMINATION TYPE: CT chest angio for PE DATE OF EXAM: 07/29/2017 COMPARISON: NONE HISTORY: Patient complains of epigastric pain. CT DLP: 307 mGycm. Automated Exposure Control for Dose Reduction was Utilized. CONTRAST: CTA scan of the thorax is performed with IV Contrast, patient injected with 100 mL of Isovue 370, pul monary embolism protocol. MIP Images are created on CT scanner and reviewed. FINDINGS: LUNGS: Mild paraseptal emphysematous changes are seen of the lung apices. Scattered areas of subsegme ntal atelectasis are present throughout the lungs most pronounced dependently. The lungs are grossly clear, there is no concerning parenchymal mass or nodule identified. There is no pleural effusion o r pneumothorax seen. The tracheobronchial tree is patent. MEDIASTINUM: There is satisfactory enhancement of the pulmonary artery and its branches, there is no CT evidence for pulmonary embolism. There are no greater than 1 cm hilar or mediastinal lymph nodes. No cardiomegaly or pericardial effusion is seen. OTHER: Surgical clips are noted within the right breast. Osseous structures demonstrate mild multilev el degenerative changes of the thoracic spine. IMPRESSION: 1. No evidence of pulmonary embolus. 2. Mild paraseptal changes and scattered areas of subsegmental atelectasis.
--- NOTE | 2017-07-29 11:24 | CT ---
EXAMINATION TYPE: CT abdomen pelvis w con DATE OF EXAM: 07/29/2017 HISTORY: Patient complains of epigastric pain. CT DLP: 1512.2mGycm Automated Exposure Control for Dose Reduction was Utilized. CONTRAST: CT scan of the abdomen and pelvis is performed with IV Contrast, patient injected with 100 mL of Isov ue 370. COMPARISON: 05/08/2017 FINDINGS: LUNG BASES: Discussed on the CT thorax dictation of the same date LIVER/GB: There is a hypoattenuated ill-defined 1.9 cm hepatic lesion on series 6 image 26, which is not definitely seen on the noncontrast prior exam of 05/08/2017. Additional punctate 6 mm hepatic lesi on within segment 6 is unchanged in the prior and is favored to represent a small hepatic cyst althou gh too small to accurately characterize. No intrahepatic biliary ductal dilatation. Gallbladder is ei ther markedly contracted or surgically absent although no cholecystectomy clips are seen within the r ight upper quadrant. Calculus was seen within the gallbladder on the prior exam and is no longer evid ent and therefore the gallbladder may have been removed. PANCREAS: No significant abnormality is seen. SPLEEN: No significant abnormality is seen. ADRENALS: Approximately 1.4 cm right adrenal gland nodule of the angel situated adjacent to the vena c bhargavi does not demonstrate Hounsfield units of a 9 adenoma and is indeterminate. Left adrenal gland dem onstrates 2 nodules measuring 1.4 and 1.7 cm that have similar characteristics to the right adrenal g land nodule. KIDNEYS: The kidneys enhance and excrete symmetrically. BOWEL: No bowel dilatation is seen to suggest obstruction slight thickening of the hepatic flexure o f the colon may relate to incomplete distention or mild colitis (coronal series 10 image 43). UTERUS/ADNEXA: No gross abnormality seen. LYMPH NODES: No greater than 1cm abdominal or pelvic lymph nodes are appreciated. OSSEOUS STRUCTURES: No significant abnormality is seen. Mild multilevel degenerative changes of the t horacolumbar spine as visualized are noted. OTHER: Subcentimeter fat filled periumbilical hernia is noted. Moderate calcific and noncalcific athe romatous plaquing is seen in the abdominal aorta and its branches. IMPRESSION: 1. Mild thickening of the hepatic flexure may relate to incomplete distention or mild colitis. 2. Indeterminate right hepatic lesion given the presumed patient's history of breast cancer with a ri ght breast surgical clips could represent a metastatic focus and further evaluation with dynamic enha nced MR abdomen is recommended. 3. Bilateral adrenal gland nodules are also indeterminate and could be further evaluated on the above recommended MRI.
--- NOTE | 2017-07-29 11:53 | ED ---
Abdominal Pain HPI - General Chief Complaint: Abdominal Pain Stated Complaint: Vomiting Time Seen by Provider: 07/29/17 09:16 Source: patient, family, RN notes reviewed Mode of arrival: wheelchair Limitations: no limitations - History of Present Illness Initial Comments: 56-year-old female presented emergency department complaint nausea vomiting. Patient had cholecystectomy [address] Burgos. Patient states that the last week has been miserable did follow-up in office in which he told her it was just course of treatment. Patient states that she's getting worse last 2 days nothing to your drink. She states she feels dehydrated she does complain of epigastric pain. She does complain of diarrhea. Denies fever, chills. No shortness of breath and orthopnea no dysuria, hematuria - Related Data Home Medications Medication Instructions Recorded Confirmed Insulin Degludec [Tresiba 15 unit SQ HS 07/15/17 07/29/17 Flextouch U-100] Lisinopril [Zestril] 5 mg PO HS 07/15/17 07/29/17 Omeprazole 40 mg PO DAILY 07/29/17 07/29/17 Ondansetron [Zofran] 4 mg PO TID PRN 07/29/17 07/29/17 Previous Rx's Medication Instructions Recorded metFORMIN HCL [Glucophage] 500 mg PO BID #30 tab 05/08/17 Allergies Allergy/AdvReac Type Severity Reaction Status Date / Time bee venom protein (honey bee) Allergy Anaphylaxis Verified 07/29/17 09:10 Review of Systems ROS Statement: Those systems with pertinent positive or pertinent negative responses have been documented in the HPI. ROS Other: All systems not noted in ROS Statement are negative. Past Medical History Past Medical History: Diabetes Mellitus, Hypertension, Osteoarthritis (OA) Additional Past Medical History / Comment(s): BACK PAIN., GALLBLADDER DISORDER History of Any Multi-Drug Resistant Organisms: None Reported Past Surgical History: Back Surgery, Breast Surgery, Cholecystectomy, Orthopedic Surgery Additional Past Surgical History / Comment(s): PARTIAL RIGHT MASTECTOMY (FALSE POSITIVE), COLONOSCOPY, RT ROTATOR CUFF REPAIR Past Anesthesia/Blood Transfusion Reactions: No Reported Reaction Past Psychological History: No Psychological Hx Reported Smoking Status: Current every day smoker Past Alcohol Use History: None Reported Past Drug Use History: None Reported - Past Family History Daughter(s) Additional Family Medical History / Comment(s): PRE- OVARIAN CANCER General Exam Limitations: no limitations General appearance: alert, in no apparent distress Head exam: Present: atraumatic, normocephalic, normal inspection Eye exam: Present: normal appearance, PERRL, EOMI. Absent: scleral icterus, conjunctival injection, periorbital swelling ENT exam: Present: normal exam, normal oropharynx, mucous membranes moist Neck exam: Present: normal inspection, full ROM. Absent: tenderness, meningismus, lymphadenopathy Respiratory exam: Present: normal lung sounds bilaterally. Absent: respiratory distress, wheezes, rales, rhonchi, stridor Cardiovascular Exam: Present: normal rhythm, tachycardia, normal heart sounds. Absent: systolic murmur, diastolic murmur, rubs, gallop, clicks GI/Abdominal exam: Present: soft, tenderness (Epigastric), normal bowel sounds. Absent: distended, guarding, rebound, rigid Back exam: Absent: CVA tenderness (R), CVA tenderness (L) Skin exam: Present: warm, dry, intact, normal color. Absent: rash Course Vital Signs 07/29/17 07/29/17 09:07 10:22 Temperature 97.0 F L Pulse Rate 106 H 75 Respiratory 18 22 Rate Blood Pressure 123/88 102/67 O2 Sat by Pulse 100 100 Oximetry Medical Decision Making - Lab Data Result diagrams: 07/29/17 09:23 07/29/17 09:23 Lab Results 07/29/17 07/29/17 07/29/17 Range/Units 09:23 09:23 09:23 WBC 13.7 H (3.8-10.6) k/uL RBC 5.07 (3.80-5.40) m/uL Hgb 15.2 (11.4-16.0) gm/dL Hct 42.9 (34.0-46.0) % MCV 84.7 (80.0-100.0) fL MCH 30.1 (25.0-35.0) pg MCHC 35.5 (31.0-37.0) g/dL RDW 12.7 (11.5-15.5) % Plt Count 269 (150-450) k/uL Neutrophils % 69 % Lymphocytes % 25 % Monocytes % 4 % Eosinophils % 1 % Basophils % 0 % Neutrophils # 9.5 H (1.3-7.7) k/uL Lymphocytes # 3.4 (1.0-4.8) k/uL Monocytes # 0.5 (0-1.0) k/uL Eosinophils # 0.1 (0-0.7) k/uL Basophils # 0.1 (0-0.2) k/uL Sodium 140 (137-145) mmol/L Potassium 3.5 (3.5-5.1) mmol/L Chloride 100 (98-107) mmol/L Carbon Dioxide 22 (22-30) mmol/L Anion Gap 18 mmol/L BUN 18 H (7-17) mg/dL Creatinine 0.83 (0.52-1.04) mg/dL Est GFR (CKD-EPI)AfAm >90 (>60 ml/min/1.73 sqM) Est GFR (CKD-EPI)NonAf 80 (>60 ml/min/1.73 sqM) Glucose 212 H (74-99) mg/dL Plasma Lactic Acid Jesus 3.1 H* (0.7-2.0) mmol/L Calcium 10.5 H (8.4-10.2) mg/dL Total Bilirubin 0.6 (0.2-1.3) mg/dL AST 28 (14-36) U/L ALT 44 (9-52) U/L Alkaline Phosphatase 137 H (38-126) U/L Troponin I (0.000-0.034) ng/mL Total Protein 7.2 (6.3-8.2) g/dL Albumin 4.5 (3.5-5.0) g/dL Amylase 34 (30-110) U/L Lipase 102 (23-300) U/L 07/29/17 Range/Units 09:44 WBC (3.8-10.6) k/uL RBC (3.80-5.40) m/uL Hgb (11.4-16.0) gm/dL Hct (34.0-46.0) % MCV (80.0-100.0) fL MCH (25.0-35.0) pg MCHC (31.0-37.0) g/dL RDW (11.5-15.5) % Plt Count (150-450) k/uL Neutrophils % % Lymphocytes % % Monocytes % % Eosinophils % % Basophils % % Neutrophils # (1.3-7.7) k/uL Lymphocytes # (1.0-4.8) k/uL Monocytes # (0-1.0) k/uL Eosinophils # (0-0.7) k/uL Basophils # (0-0.2) k/uL Sodium (137-145) mmol/L Potassium (3.5-5.1) mmol/L Chloride (98-107) mmol/L Carbon Dioxide (22-30) mmol/L Anion Gap mmol/L BUN (7-17) mg/dL Creatinine (0.52-1.04) mg/dL Est GFR (CKD-EPI)AfAm (>60 ml/min/1.73 sqM) Est GFR (CKD-EPI)NonAf (>60 ml/min/1.73 sqM) Glucose (74-99) mg/dL Plasma Lactic Acid Jesus (0.7-2.0) mmol/L Calcium (8.4-10.2) mg/dL Total Bilirubin (0.2-1.3) mg/dL AST (14-36) U/L ALT (9-52) U/L Alkaline Phosphatase (38-126) U/L Troponin I <0.012 (0.000-0.034) ng/mL Total Protein (6.3-8.2) g/dL Albumin (3.5-5.0) g/dL Amylase (30-110) U/L Lipase (23-300) U/L Disposition Clinical Impression: Dehydration, Abdominal pain, Liver mass, Lactic acidosis, S/P cholecystectomy Disposition: ADMITTED IP TO THIS [facility] Condition: Fair Referrals: Corey Sandoval DO [Primary Care Provider] - 1-2 days
[2017-07-29] MEDS ORDERED: NALOXONE 0.4 MG/ML 1 ML VIAL IV PRN (11:54)
[2017-07-29] MEDS: MORPHINE SULF 5MG/10ML VL IV PRN ×2 (12:55→15:51)
[2017-07-29] MEDS: SODIUM CHLORIDE 0.9% 1,000 ML IV SCH (14:48)
[2017-07-29 17:16] LABS: Appearance,Urine Clear (Clear); Bilirubin,Urine Negative (Negative); Blood,Urine Negative (Negative); Color,Urine Yellow; Glucose,Urine (UA) Negative (Negative); Ketones,Urine 1+ (Negative); Leukocyte Esterase,Urine Negative (Negative); Mucus,Urine Rare /hpf; Nitrite,Urine Negative (Negative); PH, Urine 6.5 (5.0-8.0); Protein,Urine 1+ (Negative); RBC,Urine 2 /hpf (0-5); Squamous Epithelial Cell,Urine 4 /hpf (0-4); Urobilinogen,Urine <2.0 mg/dL (<2.0); WBC,Urine 1 /hpf (0-5)
[2017-07-29 17:19] LABS: Specific Gravity,Urine >1.050 (1.001-1.035)
[2017-07-29 17:46] LABS: Glucose,Whole Blood 137 mg/dL (75-99)
[2017-07-29] MEDS: INSULIN ASPART 100 UNIT/ML 1 ML 10 ML VIAL SQ SCH ×2 (17:50→21:16)
[2017-07-29] MEDS ORDERED: ONDANSETRON 4 MG TAB PO PRN (18:46)
[2017-07-29] MEDS: MORPHINE SULFATE 4MG/4ML SYRG IV PRN (20:04)
[2017-07-29] MEDS: NICOTINE 21MG/24HR PATCH TRANSDERM SCH (20:05)
[2017-07-29 20:29] LABS: Glucose,Whole Blood 146 mg/dL (75-99)
[2017-07-29] MEDS ORDERED: INSULIN DETEMIR 100 UNIT/ML 10 ML VIAL SQ SCH (21:00)
[2017-07-29] MEDS: LISINOPRIL 5 MG TAB PO SCH (21:21)
[2017-07-29] MEDS: ENOXAPARIN 40 MG/0.4 ML SYRINGE SQ SCH (22:03)
[2017-07-29] MEDS: cefTRIAXone IN SWFI 1,000 MG/10 ML SYRINGE IVP SCH (22:03)
--- NOTE | 2017-07-29 22:04 | HP ---
HISTORY AND PHYSICAL DATE OF ADMISSION: 07/29/2017 PRESENTING COMPLAINT: Epigastric pain. HISTORY OF PRESENTING COMPLAINT: This is a pleasant 56-year-old patient of Dr. Sandoval. Patient on July 16 underwent [address] by Dr[address] Burgos. For 2-3 days she was okay, then she started having increasing pain in the epigastric area and started having nausea, vomiting, had some chills, but no fever. Subsequently she started having 5 or 6 bowel movements a day. She saw Dr. Burgos in the office for about a week and was told that this was part of the healing process. The patient's pain has persisted, increasing and she is not feeling good and decided to finally come in, not able to feel good, not able to eat hardly anything, throwing up everything. No fevers recorded in the ER. The patient did have a CT scan in the ER that possible small lesions in the liver. The patient's chronic stable medical conditions include diabetes, GERD, hypertension, osteoarthritis, peripheral neuropathy. REVIEW OF SYSTEMS: CONSTITUTIONAL: Weak, tired. HEENT: None. RESPIRATORY: None. CARDIOVASCULAR: None. GASTROINTESTINAL: As above. GENITOURINARY: None. MUSCULOSKELETAL: Chronic back pain. DERMATOLOGICAL: None. HEMATOLOGICAL: None. NEUROLOGICAL: None. PAST HISTORY: Diabetes mellitus type 2, GERD, hypertension, osteoarthritis, peripheral neuropathy, especially in the lower extremity, back pain, hemorrhoids, diverticulosis. PAST SURGICAL HISTORY: Back surgery, breast surgery, cholecystectomy on 07/21/2017, partial right mastectomy, colonoscopy, right rotator cuff repair. SOCIAL HISTORY: Lives with her . Smoked less than a pack a day for over 30 years. Alcohol rarely. FAMILY HISTORY: Hyperlipidemia, hypertension. HOME MEDICATIONS: 1. Glucophage 500 mg p.o. b.i.d. 2. Zofran 4 mg p.o. t.i.d. p.r.n. 3. Omeprazole 40 mg p.o. daily. 4. Zestril 5 mg p.o. q.h.s. 5. Insulin Tresiba 15 units subcu q.h.s. ALLERGIES: BEE VENOM. EXAMINATION: Temperature 97, pulse 106, respirations 18, blood pressure 126/88, pulse ox 100% on room air. GENERAL APPEARANCE: Average build, lying in bed, very tired-appearing. EYES: Pupils equal. Conjunctivae normal. HEENT: External nose and ears normal. Oral cavity: Dry mucous membranes. NECK: JVD not raised. Mass not palpable. RESPIRATORY: Effort normal. LUNGS: Slight decreased breath sounds. CARDIOVASCULAR: First and second sounds normal. No edema. ABDOMEN: Upper abdomen tenderness in the epigastric right upper quadrant. No guarding, rigidity. Liver and spleen not palpable. Bowel sounds are present. LYMPHATIC: No lymph node palpable in neck or axillae. PSYCHIATRY: Alert and oriented x3. Mood and affect slightly anxious-appearing. NEUROLOGICAL: Pupils equal. Cranial nerve grossly intact. Power and sensation grossly intact. INVESTIGATIONS: White count 13.7, hemoglobin 15.2. Potassium 3.5, BUN 18, creatinine 0.83. Lactic acid is 3.1, repeat 1.3. UA negative for leuko esterase. CT of the abdomen and pelvis. There is a 1.9 cm hepatic lesion on CT 6. Gallbladder is not present and mild thickening of the hepatic flexure, nonspecific. ASSESSMENT: 1. This is a patient who on July 16 of this month underwent laparoscopic cholecystectomy by Dr. Burgos. After 4 days, patient started having increasing nausea, vomiting, diarrhea, some pain in the epigastric area. The patient had some chills, but no obvious fevers. The patient's white count is slightly elevated because of the diarrhea, which is 5 or 6 steps and need to rule out Clostridium difficile. Otherwise, any local infection needs to be ruled out. 2. Diabetes mellitus type 2 on oral hypoglycemic. 3. Gastroesophageal reflux disease. 4. Essential hypertension. 5. Primary osteoarthritis. 6. Peripheral neuropathy secondary to diabetes. 7. Chronic nicotine dependence. Patient is a cigarette smoker. 8. Diverticulosis. 9. Hepatic lesion for further workup. PLAN: Stool will be sent off for C. diff. If this is a local infection at the operative site, at the present time, we will put the patient on ceftriaxone. Consult Dr. Burgos. Give the patient IV fluids and Lovenox for DVT prophylaxis. We will also give patient a nicotine patch. Accu-Cheks will be followed, a sliding scale. The patient will be kept on ice chips. MMODL / IJN: [id number] /
[2017-07-29] MEDS: ACETAMINOPHEN TAB 325 MG TAB PO PRN (22:32)
[2017-07-30] MEDS: MORPHINE SULFATE 4MG/4ML SYRG IV PRN (01:03)
[2017-07-30] MEDS: SODIUM CHLORIDE 0.9% 1,000 ML IV SCH ×3 (04:03→20:19)
[2017-07-30 06:54] LABS: Glucose,Whole Blood 85 mg/dL (75-99)
[2017-07-30] MEDS: INSULIN ASPART 100 UNIT/ML 1 ML 10 ML VIAL SQ SCH ×4 (07:23→20:50)
[2017-07-30] MEDS: ONDANSETRON 4 MG/2 ML VIAL IVP PRN (07:45)
[2017-07-30] MEDS: ENOXAPARIN 40 MG/0.4 ML SYRINGE SQ SCH (07:47)
[2017-07-30] MEDS: NICOTINE 21MG/24HR PATCH TRANSDERM SCH (07:47)
[2017-07-30] MEDS: metFORMIN 500 MG TAB PO SCH ×2 (07:47→17:12)
[2017-07-30] MEDS: cefTRIAXone IN SWFI 1,000 MG/10 ML SYRINGE IVP SCH (07:47)
[2017-07-30] MEDS: PANTOPRAZOLE 40 MG TABLET PO SCH (07:47)
[2017-07-30] MEDS ORDERED: MORPHINE ORAL SOLN 10 MG/5 ML CUP PO PRN (08:06)
[2017-07-30 11:50] LABS: Glucose,Whole Blood 86 mg/dL (75-99)
[2017-07-30 11:56] LABS: ALT 41 U/L (9-52); AST 27 U/L (14-36); Albumin 3.2 g/dL (3.5-5.0); Alkaline Phosphatase 91 U/L (38-126); Anion Gap 10 mmol/L; Blood Urea Nitrogen 14 mg/dL (7-17); Carbon Dioxide 26 mmol/L (22-30); Chloride 108 mmol/L (98-107); Glucose 74 mg/dL (74-99); Potassium 3.6 mmol/L (3.5-5.1); Sodium 144 mmol/L (137-145); Total Bilirubin 0.2 mg/dL (0.2-1.3); Total Protein 5.5 g/dL (6.3-8.2)
[2017-07-30 12:04] LABS: Basophils # (A) 0.1 k/uL (0-0.2); Basophils % (A) 1 %; Eosinophils # (A) 0.2 k/uL (0-0.7); Eosinophils % (A) 2 %; HCT 36.5 % (34.0-46.0); HGB 12.4 gm/dL (11.4-16.0); Lymphocytes # (A) 4.7 k/uL (1.0-4.8); Lymphocytes % (A) 59 %; MCH 29.2 pg (25.0-35.0); MCV 85.8 fL (80.0-100.0); Mean Platelet Volume 8.1; Monocytes # (A) 0.4 k/uL (0-1.0); Monocytes % (A) 5 %; Neutrophils # (A) 2.4 k/uL (1.3-7.7); Neutrophils % (A) 30 %; Platelet Count 203 k/uL (150-450); RBC 4.25 m/uL (3.80-5.40); RDW 12.7 % (11.5-15.5)
--- NOTE | 2017-07-30 12:19 | P.GSCN ---
<Tresa Mckeon M - Last Filed: 07/30/17 11:53> History of Present Illness Consult date: 07/30/17 Reason for Consult: Abdominal pain History of present illness: 56-year-old female presented on the day of admission to the emergency room to be evaluated for chief complaint of nausea vomiting and persistent epigastric pain worse when trying to eat. Patient stated her symptoms have been ongoing for the last several weeks. did undergo a laparoscopic cholecystectomy by Dr. bryant July 16. Patient stated after the surgery developed midepigastric pain with persistent nausea vomiting and inability to keep any fluids down. Patient was seen in the office of last week to be evaluated for the above-mentioned symptoms. At that time told no further recommendations that this was to be expected patient additionally reports since April 14 17 has lost unintentionally 80 pounds with a decrease appetite her primary care provider according to the patient is working up the weight loss. Patient also states that she's been having loose stools accompanied by the nausea vomiting. Patient stated that she felt symptomatic presented to the emergency room because she felt dehydrated. Patient points to the midepigastric area as to the reference point states it radiates down to the left lower quadrant. He currently is stating the nausea sensation is improved is actually feeling hungry is requesting a diet In the emergency room a computed tomography scan of the chest to rule out pulmonary emboli showed no evidence of a pulmonary emboli no pleural effusion noted the lungs were grossly clear there was no concern for a mass or nodule additionally a CAT scan of the abdomen pelvis obtained in the emergency room reviewing the report showed mild thickening of the hepatic flexure which could relate to incomplete distention or mild colitis. Indeterminate right hepatic lesion could represent a metastatic focus. Recommending MRI of. Liver with and without contrast Past surgical history 07/16/2017 laparoscopic cholecystectomy for cholecystitis , colonoscopy done in April [address] Hodges. Also an EGD done in June by GI Dr. Hicks, several years ago patient is not certain of the date did have a right partial mastectomy false positive no evidence of cancer, right rotator cuff repair, orthopedic surgery. Past medical history diabetes, hypertension, osteoarthritis Patient is an current every day smoker Review of Systems Essentially unremarkable except as mentioned in the present illness Past Medical History Past Medical History: Diabetes Mellitus, GERD/Reflux, Hypertension, Osteoarthritis (OA) Additional Past Medical History / Comment(s): IDDM type II, peripheral neuropathy bilateral feet, back pain, hemorrhoids, diverticular dx, UTI History of Any Multi-Drug Resistant Organisms: None Reported Past Surgical History: Back Surgery, Breast Surgery, Cholecystectomy, Orthopedic Surgery Additional Past Surgical History / Comment(s): 04/2017 COLONOSCOPY, 07/16/17 [facility], PARTIAL RIGHT MASTECTOMY (FALSE POSITIVE), COLONOSCOPY, RT ROTATOR CUFF REPAIR Past Anesthesia/Blood Transfusion Reactions: No Reported Reaction Smoking Status: Current every day smoker - Past Family History Daughter(s) Additional Family Medical History / Comment(s): PRE- OVARIAN CANCER Mother Family Medical History: Hyperlipidemia, Hypertension Father Family Medical History: Diabetes Mellitus, Hyperlipidemia, Hypertension Medications and Allergies Home Medications Medication Instructions Recorded Confirmed Type metFORMIN HCL [Glucophage] 500 mg PO BID #30 tab 05/08/17 07/29/17 Rx Insulin Degludec [Tresiba 15 unit SQ HS 07/15/17 07/29/17 History Flextouch U-100] Lisinopril [Zestril] 5 mg PO HS 07/15/17 07/29/17 History Omeprazole 40 mg PO DAILY 07/29/17 07/29/17 History Ondansetron [Zofran] 4 mg PO TID PRN 07/29/17 07/29/17 History Allergies Allergy/AdvReac Type Severity Reaction Status Date / Time bee venom protein (honey bee) Allergy Anaphylaxis Verified 07/29/17 09:10 Surgical - Exam Vital Signs Temp Pulse Resp BP Pulse Ox 97.0 F L 106 H 18 123/88 100 07/29/17 09:07 07/29/17 09:07 07/29/17 09:07 07/29/17 09:07 07/29/17 09:07 GENERAL APPEARANCE: 56-year-old female resting in bed continues to report having mid epigastric pain radiating to the left lower quadrant alert, oriented , in no acute distress. VITAL SIGNS: Reviewed HEENT: Head is normocephalic and atraumatic. Pupils are equal and reactive. The nares are patent. Oropharynx is clear without lesions. NECK: Supple without lymphadenopathy. Traches midline. HEART: S1, S2. Regular rate and rhythm. Denying chest pain no murmur noted LUNGS: No crackles or wheezes are heard. Adequate air movement bilaterally on room air no cough noted ABDOMEN: Soft, mild tenderness to the mid epigastric area nondistended with good bowel sounds. No peritoneal signs. No palpable organomegaly or masses. States since being admitted no bowel movement urinating no difficulty EXTREMITIES: Normal skin color and turgor. No cyanosis, rash, ulceration, clubbing or edema. Radial pedal pulses are 2/4 bilaterally. NEUROLOGICAL: No focal deficits. Strength and sensation are grossly intact. Results - Labs 07/29/17 09:23 07/29/17 09:23 Abnormal Lab Results - Last 24 Hours (Table) 07/29/17 07/29/17 07/29/17 Range/Units 00:00 15:30 17:44 Chloride 108 H (98-107) mmol/L POC Glucose (mg/dL) 137 H (75-99) mg/dL Total Protein 5.5 L (6.3-8.2) g/dL Albumin 3.2 L (3.5-5.0) g/dL Ur Specific [place] >1.050 H (1.001-1.035) Urine Protein 1+ H (Negative) Urine Ketones 1+ H (Negative) Urine Mucus Rare H (None) /hpf 07/29/17 Range/Units 20:28 Chloride (98-107) mmol/L POC Glucose (mg/dL) 146 H (75-99) mg/dL Total Protein (6.3-8.2) g/dL Albumin (3.5-5.0) g/dL Ur Specific [place] (1.001-1.035) Urine Protein (Negative) Urine Ketones (Negative) Urine Mucus (None) /hpf Diabetes panel 07/29/17 Range/Units 00:00 Sodium 144 (137-145) mmol/L Potassium 3.6 (3.5-5.1) mmol/L Chloride 108 H (98-107) mmol/L Carbon Dioxide 26 (22-30) mmol/L BUN 14 (7-17) mg/dL Creatinine 0.65 (0.52-1.04) mg/dL Glucose 74 (74-99) mg/dL Calcium 9.0 (8.4-10.2) mg/dL AST 27 (14-36) U/L ALT 41 (9-52) U/L Alkaline Phosphatase 91 (38-126) U/L Total Protein 5.5 L (6.3-8.2) g/dL Albumin 3.2 L (3.5-5.0) g/dL Calcium panel 07/29/17 Range/Units 00:00 Calcium 9.0 (8.4-10.2) mg/dL Albumin 3.2 L (3.5-5.0) g/dL Pituitary panel 07/29/17 Range/Units 00:00 Sodium 144 (137-145) mmol/L Potassium 3.6 (3.5-5.1) mmol/L Chloride 108 H (98-107) mmol/L Carbon Dioxide 26 (22-30) mmol/L BUN 14 (7-17) mg/dL Creatinine 0.65 (0.52-1.04) mg/dL Glucose 74 (74-99) mg/dL Calcium 9.0 (8.4-10.2) mg/dL Adrenal panel 07/29/17 Range/Units 00:00 Sodium 144 (137-145) mmol/L Potassium 3.6 (3.5-5.1) mmol/L Chloride 108 H (98-107) mmol/L Carbon Dioxide 26 (22-30) mmol/L BUN 14 (7-17) mg/dL Creatinine 0.65 (0.52-1.04) mg/dL Glucose 74 (74-99) mg/dL Calcium 9.0 (8.4-10.2) mg/dL Total Bilirubin 0.2 (0.2-1.3) mg/dL AST 27 (14-36) U/L ALT 41 (9-52) U/L Alkaline Phosphatase 91 (38-126) U/L Total Protein 5.5 L (6.3-8.2) g/dL Albumin 3.2 L (3.5-5.0) g/dL Assessment and Plan Assessment: Impression Present on admission epigastric pain intractable nausea vomiting diarrhea with clinical dehydration suspect due to poor oral intake A recent laparoscopic cholecystectomy for cholelithiasis done 07/16/2017 History of a partial right mastectomy false positive no evidence of cancer Current every day smoker History of unintentional weight loss 80 pounds since March Colonoscopy done 05/04/2017 findings scattered diverticuli internal hemorrhoids inflamed bowel CAT scan abdomen and pelvis report indicates hepatic lesion not noted on prior exam in April 2017 CAT scan [facility] chest no evidence of a pulmonary emboli Type 2 diabetes Plan IV fluid for hydration Follow-up on labs Follow up on the MRI of the liver scheduled today Other surgical recommendations pending review of the CAT scan of abdomen and pelvis DVT and GI prophylaxis Antiemetics as ordered Pain control Surgical consultation note dictated for Dr. bernardo The above impression and plan of care have been discussed and directed by signing physician. Tresa Mckeon nurse practitioner acting as scribe for signing physician. <Lauryn Bernardo - Last Filed: 07/30/17 18:28> Surgical - Exam Vital Signs Temp Pulse Resp BP Pulse Ox 97.0 F L 106 H 18 123/88 100 07/29/17 09:07 07/29/17 09:07 07/29/17 09:07 07/29/17 09:07 07/29/17 09:07 Results - Labs 07/30/17 07:30 07/30/17 07:30 Abnormal Lab Results - Last 24 Hours (Table) 07/29/17 07/30/17 07/30/17 Range/Units 20:28 07:30 17:38 Chloride 108 H (98-107) mmol/L POC Glucose (mg/dL) 146 H 109 H (75-99) mg/dL Total Protein 5.5 L (6.3-8.2) g/dL Albumin 3.2 L (3.5-5.0) g/dL Diabetes panel 07/29/17 07/30/17 Range/Units 00:00 07:30 Sodium 144 (137-145) mmol/L Potassium 3.6 (3.5-5.1) mmol/L Chloride 108 H (98-107) mmol/L Carbon Dioxide 26 (22-30) mmol/L BUN 14 (7-17) mg/dL Creatinine 0.65 (0.52-1.04) mg/dL Glucose 74 (74-99) mg/dL Calcium 9.0 (8.4-10.2) mg/dL AST 27 (14-36) U/L ALT 41 (9-52) U/L Alkaline Phosphatase 91 (38-126) U/L Total Protein 5.5 L (6.3-8.2) g/dL Albumin 3.2 L (3.5-5.0) g/dL Calcium panel 07/29/17 07/30/17 Range/Units 00:00 07:30 Calcium 9.0 (8.4-10.2) mg/dL Albumin 3.2 L (3.5-5.0) g/dL Pituitary panel 07/29/17 07/30/17 Range/Units 00:00 07:30 Sodium 144 (137-145) mmol/L Potassium 3.6 (3.5-5.1) mmol/L Chloride 108 H (98-107) mmol/L Carbon Dioxide 26 (22-30) mmol/L BUN 14 (7-17) mg/dL Creatinine 0.65 (0.52-1.04) mg/dL Glucose 74 (74-99) mg/dL Calcium 9.0 (8.4-10.2) mg/dL Adrenal panel 07/29/17 07/30/17 Range/Units 00:00 07:30 Sodium 144 (137-145) mmol/L Potassium 3.6 (3.5-5.1) mmol/L Chloride 108 H (98-107) mmol/L Carbon Dioxide 26 (22-30) mmol/L BUN 14 (7-17) mg/dL Creatinine 0.65 (0.52-1.04) mg/dL Glucose 74 (74-99) mg/dL Calcium 9.0 (8.4-10.2) mg/dL Total Bilirubin 0.2 (0.2-1.3) mg/dL AST 27 (14-36) U/L ALT 41 (9-52) U/L Alkaline Phosphatase 91 (38-126) U/L Total Protein 5.5 L (6.3-8.2) g/dL Albumin 3.2 L (3.5-5.0) g/dL
[2017-07-30 13:36] VITALS: BMI 29.0
--- NOTE | 2017-07-30 15:39 | P.CONS ---
History of Present Illness - Reason for Consult Consult date: 07/29/17 Liver Lesion Requesting physician: Chay Powell - Chief Complaint Abdominal mid epigastric pain - History of Present Illness Mrs. Leyva is a 56-year-old female who presented to the emergency room for a chief complaint of nausea, vomiting and persistent epigastric pain. Increased symptoms with any PO intake. Symptoms presented a few weeks ago and was seen by her primary physician who referred her to Dr. Burgos where she underwent a laparoscopic cholecystectomy on July 16. She stated after the surgery is when the symptoms progressed and became intolerable. She admits to over an 80lb weight loss since March of 2017, decreased appetite, intermittent nausea and diarrhea that seems to be worse with eating. She has been following her PCP for these concerns. She presented to the emergency department for further workup this week because she felt weak and thought she may be dehydrated. Her abdominal pain was not relieved with norco at home. She describes the pain as very sharp, persistent, severe and radiating to her right side. Since hospitalization her nausea has improved and she was advanced on her diet. Although the pain appears to be severe again. Her initial work-up included CT Chest - failed to show evidence of PE, ant CT scan of the abdomen pelvis which revealed mild thickening of the hepatic flexure which could relate to incomplete distention or mild colitis. Review of Systems A 14 point review of systems assessed and completed and all negative except HPI Past Medical History Past Medical History: Diabetes Mellitus, GERD/Reflux, Hypertension, Osteoarthritis (OA) Additional Past Medical History / Comment(s): IDDM type II, peripheral neuropathy bilateral feet, back pain, hemorrhoids, diverticular dx, UTI History of Any Multi-Drug Resistant Organisms: None Reported Past Surgical History: Back Surgery, Breast Surgery, Cholecystectomy, Orthopedic Surgery Additional Past Surgical History / Comment(s): 04/2017 COLONOSCOPY, 07/16/17 [facility], PARTIAL RIGHT MASTECTOMY (FALSE POSITIVE), COLONOSCOPY, RT ROTATOR CUFF REPAIR Past Anesthesia/Blood Transfusion Reactions: No Reported Reaction Smoking Status: Current every day smoker - Past Family History Daughter(s) Additional Family Medical History / Comment(s): PRE- OVARIAN CANCER Mother Family Medical History: Hyperlipidemia, Hypertension Father Family Medical History: Diabetes Mellitus, Hyperlipidemia, Hypertension Medications and Allergies Home Medications Medication Instructions Recorded Confirmed Type metFORMIN HCL [Glucophage] 500 mg PO BID #30 tab 05/08/17 07/29/17 Rx Insulin Degludec [Tresiba 15 unit SQ HS 07/15/17 07/29/17 History Flextouch U-100] Lisinopril [Zestril] 5 mg PO HS 07/15/17 07/29/17 History Omeprazole 40 mg PO DAILY 07/29/17 07/29/17 History Ondansetron [Zofran] 4 mg PO TID PRN 07/29/17 07/29/17 History Allergies Allergy/AdvReac Type Severity Reaction Status Date / Time bee venom protein (honey bee) Allergy Anaphylaxis Verified 07/29/17 09:10 Physical Exam Vitals: Vital Signs Temp Pulse Resp BP Pulse Ox 07/30/17 08:00 72 16 07/30/17 07:00 97.6 F 72 16 101/67 95 07/29/17 22:33 98.3 F 69 16 92/45 97 07/29/17 16:00 76 18 Intake and Output 07/30/17 07/30/17 07/30/17 06:59 14:59 22:59 Intake Total 800 700 Balance 800 700 Intake: Intake, IV Titration 800 700 Amount Sodium Chloride 0.9% 1, 800 700 000 ml @ 100 mls/hr IV . Q10H [facility] Rx#:[id number] Other: Voiding Method Toilet Toilet Weight 81.647 kg - Constitutional General appearance: average body habitus, cooperative, no acute distress - EENT Eyes: PERRLA, dentition normal, normal appearance ENT: NA/AT, normal oropharynx - Neck Supple, Trachea Midline Neck: normal ROM - Respiratory Respiratory: bilateral: CTA (No increased effort noted) - Cardiovascular Rhythm: regular Heart sounds: normal: S1, S2 - Gastrointestinal General gastrointestinal: normal bowel sounds, soft, tenderness - Integumentary Integumentary: normal - Neurologic No focal deficits Neurologic: CNII-XII intact - Musculoskeletal Musculoskeletal: strength equal bilaterally - Psychiatric Psychiatric: A&O x's 3, appropriate affect, intact judgment & insight Results CBC & Chem 7: 07/30/17 07:30 07/30/17 07:30 Labs: Abnormal Lab Results - Last 24 Hours (Table) 07/29/17 07/29/17 07/29/17 Range/Units 15:30 17:44 20:28 Chloride (98-107) mmol/L POC Glucose (mg/dL) 137 H 146 H (75-99) mg/dL Total Protein (6.3-8.2) g/dL Albumin (3.5-5.0) g/dL Ur Specific [place] >1.050 H (1.001-1.035) Urine Protein 1+ H (Negative) Urine Ketones 1+ H (Negative) Urine Mucus Rare H (None) /hpf 07/30/17 Range/Units 07:30 Chloride 108 H (98-107) mmol/L POC Glucose (mg/dL) (75-99) mg/dL Total Protein 5.5 L (6.3-8.2) g/dL Albumin 3.2 L (3.5-5.0) g/dL Ur Specific [place] (1.001-1.035) Urine Protein (Negative) Urine Ketones (Negative) Urine Mucus (None) /hpf CT scan - abdomen: report reviewed CT scan - chest: report reviewed CT scan - pelvis: report reviewed Assessment and Plan (1) Hepatic lesion Current Visit: Yes Status: Acute Code(s): K76.9 - LIVER DISEASE, UNSPECIFIED SNOMED Code(s): 797298091 (2) Nausea & vomiting Current Visit: Yes Status: Acute Code(s): R11.2 - NAUSEA WITH VOMITING, UNSPECIFIED SNOMED Code(s): 87111270 (3) Weight loss Current Visit: Yes Status: Acute Code(s): R63.4 - ABNORMAL WEIGHT LOSS SNOMED Code(s): 76929091 (4) Decreased appetite Current Visit: Yes Status: Acute Code(s): R63.0 - ANOREXIA SNOMED Code(s) : 73106117 (5) Diarrhea Current Visit: Yes Status: Acute Code(s): R19.7 - DIARRHEA, UNSPECIFIED SNOMED Code(s): 09964325 (6) Abdominal pain Current Visit: Yes Status: Acute Code(s): R10.9 - UNSPECIFIED ABDOMINAL PAIN SNOMED Code(s): 18583832 (7) Dehydration Current Visit: Yes Status: Acute Code(s): E86.0 - DEHYDRATION SNOMED Code( s): 74291391 (8) S/P cholecystectomy Current Visit: Yes Status: Acute Code(s): Z90.49 - ACQUIRED ABSENCE OF OTHER SPECIFIED PARTS OF DIGESTIVE TRACT SNOMED Code(s): 797906418 Plan: Assessment and Recommendations: 1. Indeterminate Right Hepatic Lobe Lesion found on CT abdomen: - Warrants further worker with MRI, order placed 2. Bilateral Adrenal Gland Nodules - Uncertain Etiology - Further Diagnostic Imaging may be beneficial, would await results from MRI Liver 3. Intractable Abdominal Pain, worse with PO Intake - Uncertain the degree of pain would be related to the findings on CT. GI Following, ?Colitis patient is receiving IV antibiotics and Pain management 4. Nausea, Vomiting, and Diarrhea - Status Post Cholecystectomy. Consider obtaining stool studies. I have performed the complete history and physical of this patient, discussed with HEALTH AND SAFETY CONSULTANT, who has dictated strictly as scribe. Thank you for allowing us to participate in the care of your patient, further recs to follow after MRI completed.
--- NOTE | 2017-07-30 15:43 | P.PN ---
Subjective Progress Note Date: 07/30/17 Principal diagnosis: Hepatic Lesion Patient in acute distress when seen today, mother and family at bedside. She just received po morphine for pain but states it has made her pain worse at this time. She is having a difficult time speaking to me secondary to pain. Objective - Vital Signs Vital signs: Vital Signs Temp 97.9 F 07/30/17 15:00 Pulse 87 07/30/17 15:00 Resp 16 07/30/17 15:00 BP 101/64 07/30/17 15:00 Pulse Ox 96 07/30/17 15:00 Intake & Output 07/29/17 07/30/17 07/30/17 18:59 06:59 18:59 Intake Total 200 1150 700 Balance 200 1150 700 Weight 81.647 kg 81.647 kg Intake: Intake, IV Titration 1150 700 Amount Sodium Chloride 0.9% 1, 1150 700 000 ml @ 100 mls/hr IV . Q10H [facility] Rx#:[id number] Oral 200 Other: Voiding Method Toilet Toilet # Voids 1 - Constitutional General appearance: Present: average body habitus, mild distress - EENT Eyes: Present: EOMI, PERRLA, dentition normal ENT: Present: NA/AT, normal oropharynx - Neck Neck: Present: normal ROM - Respiratory Respiratory: bilateral: CTA (increased effort secondary to pain) - Cardiovascular Rhythm: regular Heart sounds: normal: S1, S2 - Gastrointestinal General gastrointestinal: Present: normal bowel sounds, soft, tenderness Localized gastrointestinal: tender: diffuse, guarding: diffuse, rebound: diffuse - Integumentary Integumentary: Present: normal - Neurologic Neurologic Comment(s): Nofocal defects Neurologic: Present: CNII-XII intact - Musculoskeletal Musculoskeletal: Present: generalized weakness - Psychiatric Psychiatric: Present: A&O x's 3, appropriate affect, intact judgment & insight - Labs CBC & Chem 7: 07/30/17 07:30 07/30/17 07:30 Labs: Abnormal Lab Results - Last 24 Hours (Table) 07/29/17 07/29/17 07/29/17 Range/Units 15:30 17:44 20:28 Chloride (98-107) mmol/L POC Glucose (mg/dL) 137 H 146 H (75-99) mg/dL Total Protein (6.3-8.2) g/dL Albumin (3.5-5.0) g/dL Ur Specific [place] >1.050 H (1.001-1.035) Urine Protein 1+ H (Negative) Urine Ketones 1+ H (Negative) Urine Mucus Rare H (None) /hpf 07/30/17 Range/Units 07:30 Chloride 108 H (98-107) mmol/L POC Glucose (mg/dL) (75-99) mg/dL Total Protein 5.5 L (6.3-8.2) g/dL Albumin 3.2 L (3.5-5.0) g/dL Ur Specific [place] (1.001-1.035) Urine Protein (Negative) Urine Ketones (Negative) Urine Mucus (None) /hpf Assessment and Plan (1) Hepatic lesion Current Visit: Yes Status: Acute Code(s): K76.9 - LIVER DISEASE, UNSPECIFIED SNOMED Code(s): 117557488 (2) Nausea & vomiting Current Visit: Yes Status: Acute Code(s): R11.2 - NAUSEA WITH VOMITING, UNSPECIFIED SNOMED Code(s): 08205180 (3) Weight loss Current Visit: Yes Status: Acute Code(s): R63.4 - ABNORMAL WEIGHT LOSS SNOMED Code(s): 88827749 (4) Decreased appetite Current Visit: Yes Status: Acute Code(s): R63.0 - ANOREXIA SNOMED Code(s) : 05913779 (5) Diarrhea Current Visit: Yes Status: Acute Code(s): R19.7 - DIARRHEA, UNSPECIFIED SNOMED Code(s): 14287375 (6) Abdominal pain Current Visit: Yes Status: Acute Code(s): R10.9 - UNSPECIFIED ABDOMINAL PAIN SNOMED Code(s): 18417141 (7) Dehydration Current Visit: Yes Status: Acute Code(s): E86.0 - DEHYDRATION SNOMED Code( s): 94179801 (8) S/P cholecystectomy Current Visit: Yes Status: Acute Code(s): Z90.49 - ACQUIRED ABSENCE OF OTHER SPECIFIED PARTS OF DIGESTIVE TRACT SNOMED Code(s): 647686152 Plan: Assessment and Recommendations: 1. Indeterminate Right Hepatic Lobe Lesion found on CT abdomen: - Warrants further worker with MRI, Outstanding still awaiting completion of exam 2. Bilateral Adrenal Gland Nodules - Uncertain Etiology - Further Diagnostic Imaging may be beneficial, would await results from MRI Liver 3. Intractable Abdominal Pain, worse with PO Intake - Uncertain the degree of pain would be related to the findings on CT. GI Following, ?Colitis patient is receiving IV antibiotics and Pain management. No signs of anemia, pancreatic enzymes within normal limits. 4. Nausea, Vomiting, and Diarrhea - Status Post Cholecystectomy. Consider obtaining stool studies. Continue supportive symptom management, GI recs. Thank you for allowing us to participate in the care of your patient, further recs to follow after MRI completed.
[2017-07-30] MEDS: MORPHINE SULFATE 4MG/4ML SYRG IVP PRN ×2 (16:10→20:11)
[2017-07-30] MEDS: ACETAMINOPHEN TAB 325 MG TAB PO PRN (17:01)
[2017-07-30 17:39] LABS: Glucose,Whole Blood 109 mg/dL (75-99)
--- NOTE | 2017-07-30 18:28 | P.PN ---
Progress Note - Text Progress Note Date: 07/30/17 Patient seen and evaluted. She has had multiple diagnostic work-up including upper and lower scope and laparoscopic cholecystectomy. She reports new character of pain within 3 days follow cholecystectomy less than [address] of the abdomen personally reviewed. She has just completed MRI. Final results are pending. Patient is concerned of her pancreas. At this time, no acute surgical intervention. Patient is tolerating a soft diet. She reports persistent epigatric pain. Incisions granulating without signs of infection. Will follow.
[2017-07-30 20:27] LABS: Glucose,Whole Blood 142 mg/dL (75-99)
--- NOTE | 2017-07-30 20:29 | PN ---
PROGRESS NOTE DATE OF SERVICE: 07/30/2017 PRESENTING COMPLAINT: Epigastric pain. INTERVAL HISTORY: This is a patient who had cholecystectomy by Dr. Burgos about 10 days ago. She presented with increasing epigastric pain with some leukocytosis. Patient was found to have a lesion on the liver, for which she did have a liver MRI. Patient has remained afebrile. I had empirically put the patient on ceftriaxone. She is still having epigastric pain. REVIEW OF SYSTEMS: Done for constitutional, cardiovascular, GI, pulmonary; relevant findings as above. CURRENT MEDICATIONS: Reviewed. They include IV ceftriaxone. PHYSICAL EXAMINATION: Temperature 97.6, pulse 72, respiration 16, blood pressure 101/67, pulse ox 95% on room air. GENERAL APPEARANCE: Lying in bed, tired-appearing. EYES: Pupils equal. Conjunctivae normal. HEENT: External appearance of nose and ears normal. Oral cavity normal. NECK: JVD not raised. Mass not palpable. RESPIRATORY: Effort normal. Lungs are clear. CARDIOVASCULAR: First and second sounds normal. No edema. ABDOMEN: Epigastric tenderness. No guarding or rigidity. Liver and spleen not palpable. PSYCHIATRY: Alert and oriented x3. Mood and affect normal. INVESTIGATIONS: White count 8, hemoglobin 12.4, potassium 3.6. BUN and creatinine are normal. LFTs are normal. ASSESSMENT: 1. This patient is status post cholecystectomy by Dr. Burgos with acute epigastric pain with some elevation of the white count and some diarrhea when she initially presented; could be postoperative inflammatory pain. She is empirically on IV ceftriaxone. 2. Diabetes mellitus, type 2, on oral hypoglycemic. 3. Gastroesophageal reflux disease. 4. Essential hypertension. 5. Primary osteoarthritis. 6. Peripheral neuropathy secondary to diabetes. 7. Chronic nicotine dependence. Patient is a cigarette smoker. 8. Diverticulosis. 9. Hepatic lesion. Getting MRI. PLAN: Continue current medication and treatment plan. Await further input from Surgery. Will get an ID opinion. MMODL / IJN: [id number] /
[2017-07-30] MEDS: LISINOPRIL 5 MG TAB PO SCH (20:50)
[2017-07-30] MEDS: TRESIBA 15 UNIT SQ SCH (20:51)
[2017-07-30] MEDS ORDERED: INSULIN DETEMIR 100 UNIT/ML 10 ML VIAL SQ SCH (21:00)
--- NOTE | 2017-07-30 23:04 | MR ---
EXAMINATION TYPE: MR liver wo/w con DATE OF EXAM: 07/30/2017 COMPARISON: CT without contrast 05/08/2017. CT with contrast 07/29/2017. HISTORY: 1.9 cm liver lesion. Adrenal lesions. TECHNIQUE: Departmental abdominal MRI liver multiplanar/multi sequence protocol with departmental dos ing of intravenous gadolinium contrast. FINDINGS: The 1.9 cm diameter liver lesion is T2 isointense to liver parenchyma and is hypovascular f ollowing intravenous gadolinium contrast delivery. The lesion is inconsistent with a diagnosis of cav ernous hemangioma or cyst, and secondary neoplasm cannot be excluded this point. Liver is otherwise u nremarkable. The adrenal glands appear to drop signal with opposed phase T1 gradient echo imaging, but there is pa tient motion artifact and difficulty in assessing this feature. There is no adenopathy. No skeletal lesions. No pulmonary lesions. Remainder of the abdominal examina tion is normal. IMPRESSION: 1. INDETERMINATE 1.9 CM DIAMETER LIVER LESION; MALIGNANCY NOT EXCLUDED AT THIS POINT IN THE IMAGING WORKUP. 2. LIMITED ADRENAL NODULE CHARACTERIZATION, BUT SUSPECT BENIGN ADENOMAS. Recommendation: The best characterization would be obtaining a prior contrast CT or MRI or ultrasound from another in stitution. If not available, then follow body PET CT characterization can BE used to further characte rize the liver lesion and the adrenal lesions. Alternatively, a targeted sonographic assessment of th e 1.9 cm diameter liver lesion, using high-resolution multiple technique sonographic imaging, can be complimentary.
[2017-07-31] MEDS: SODIUM CHLORIDE 0.9% 1,000 ML IV SCH ×2 (04:23→05:58)
[2017-07-31 07:20] LABS: Glucose,Whole Blood 123 mg/dL (75-99)
[2017-07-31] MEDS: PANTOPRAZOLE 40 MG TABLET PO SCH (07:58)
[2017-07-31] MEDS: MORPHINE SULFATE 4MG/4ML SYRG IVP PRN (08:13)
[2017-07-31] MEDS: NICOTINE 21MG/24HR PATCH TRANSDERM SCH (08:16)
[2017-07-31] MEDS: ENOXAPARIN 40 MG/0.4 ML SYRINGE SQ SCH (08:17)
[2017-07-31 08:19] VITALS: RESP 16
[2017-07-31] MEDS: cefTRIAXone IN SWFI 1,000 MG/10 ML SYRINGE IVP SCH (08:20)
[2017-07-31] MEDS: metFORMIN 500 MG TAB PO SCH ×2 (08:26→16:40)
[2017-07-31] MEDS: INSULIN ASPART 100 UNIT/ML 1 ML 10 ML VIAL SQ SCH ×4 (08:26→20:15)
[2017-07-31 11:32] LABS: Glucose,Whole Blood 126 mg/dL (75-99)
--- NOTE | 2017-07-31 15:01 | P.PN ---
Subjective Progress Note Date: 07/31/17 The patient is a 56-year-old female admitted secondary to dehydration and abdominal pain. She is status post cholecystectomy more than 2 weeks ago. She reports having an upper endoscopy at another facility. Separately she had a CT of the abdomen and pelvis demonstrating a questionable lesion on the liver. MRI results were described to her which is still inconclusive for the cause of liver lesion. She is tolerating diet. Objective - Vital Signs Vital signs: Vital Signs Temp 98.7 F 07/31/17 07:00 Pulse 69 07/31/17 08:00 Resp 16 07/31/17 08:00 BP 111/74 07/31/17 07:00 Pulse Ox 96 07/31/17 07:00 Intake & Output 07/30/17 07/31/17 07/31/17 18:59 06:59 18:59 Intake Total 700 1000 240 Balance 700 1000 240 Weight 81.647 kg Intake: IV 900 Sodium Chloride 0.9% 1, 900 000 ml @ 100 mls/hr IV . Q10H [facility] Rx#:[id number] Intake, IV Titration 700 Amount Sodium Chloride 0.9% 1, 700 000 ml @ 100 mls/hr IV . Q10H [facility] Rx#:[id number] Oral 100 240 Other: Voiding Method Toilet Toilet Toilet # Voids 1 2 - Exam GENERAL: Well developed and in no acute distress. Pleasant. HEENT: No sclera icterus. Extraocular movements grossly intact. Moist buccal mucosa. Head is atraumatic, normocephalic. Hears conversational speech. No nasal drainage. NECK: Supple without lymphadenopathy. No JV distention. CHEST: Non-labored respirations and equal bilateral excursions. CARDIOVASCULAR: Regular rate and rhythm. Palpable 2+ radial pulses. ABDOMEN: Soft. Nondistended. Mild tenderness along the epigastrium. No peritonitis. MUSCULOSKELETAL: No clubbing, cyanosis or edema. NEUROLOGIC: No focal or lateralizing signs. PSYCH: Appropriate affect. Alert and oriented to person, place and time. SKIN: Good skin turgor. Well perfused. - Labs CBC & Chem 7: 07/30/17 07:30 07/30/17 07:30 Labs: Abnormal Lab Results - Last 24 Hours (Table) 07/30/17 07/30/17 07/31/17 Range/Units 17:38 20:25 07:19 POC Glucose (mg/dL) 109 H 142 H 123 H (75-99) mg/dL 07/31/17 Range/Units 11:31 POC Glucose (mg/dL) 126 H (75-99) mg/dL - Imaging and Cardiology CT scan - abdomen: report reviewed, image reviewed CT scan - pelvis: report reviewed (All results were reviewed with 2 cm lesion of the liver. No pancreatic lesions identified. A small hiatal hernia is demonstrated in her computed tomography scan is reviewed by me), image reviewed MRI - abdomen: report reviewed, image reviewed Assessment and Plan (1) Hiatal hernia Current Visit: Yes Status: Acute Code(s): K44.9 - DIAPHRAGMATIC HERNIA WITHOUT OBSTRUCTION OR GANGRENE SNOMED Code(s): 01783743 (2) Epigastric pain Current Visit: Yes Status: Acute Code(s): R10.13 - EPIGASTRIC PAIN SNOMED Code(s): 14215495 (3) Abdominal pain Current Visit: Yes Status: Acute Code(s): R10.9 - UNSPECIFIED ABDOMINAL PAIN SNOMED Code(s): 39437073 (4) Dehydration Current Visit: Yes Status: Acute Code(s): E86.0 - DEHYDRATION SNOMED Code( s): 27814397 (5) Hepatic lesion Current Visit: Yes Status: Acute Code(s): K76.9 - LIVER DISEASE, UNSPECIFIED SNOMED Code(s): 577952344 (6) S/P cholecystectomy Current Visit: Yes Status: Acute Code(s): Z90.49 - ACQUIRED ABSENCE OF OTHER SPECIFIED PARTS OF DIGESTIVE TRACT SNOMED Code(s): 355967010 Plan: 1. I reviewed her findings on MRI and findings are still inconclusive. She may benefit from a liver biopsy if deemed necessary by oncology 2. Separately, her epigastric abdominal pain is consistent with her CT findings of a hiatal hernia. Additionally, hypertensive lower esophageal sphincter or diffuse esophageal spasm may cause similar symptoms. Will need outpatient manometry. 3. At this time, no acute surgical intervention. Management per medicine. 4. Patient was agreeable to follow up as outpatient regarding her hiatal hernia.
[2017-07-31 17:22] LABS: Glucose,Whole Blood 185 mg/dL (75-99)
[2017-07-31] MEDS: ONDANSETRON 4 MG/2 ML VIAL IVP PRN (17:44)
[2017-07-31 19:37] LABS: Glucose,Whole Blood 137 mg/dL (75-99)
--- NOTE | 2017-07-31 20:06 | PN ---
PROGRESS NOTE DATE OF SERVICE: 07/31/17. PRESENTING COMPLAINT: Epigastric pain. INTERVAL HISTORY: This patient is status post cholecystectomy by Dr. Burgos, presented with increasing epigastric pain following the surgery. Had a slight white count for which empirically I put the patient on ceftriaxone. Still having the epigastric pain. MRI has been inconclusive. The patient continues to have the pain per Dr. Rodas. She thinks the pain is from hiatal hernia. REVIEW OF SYSTEMS: Done for constitutional, cardiovascular, GI, pulmonary; relevant findings as above. CURRENT MEDICATIONS: Include IV ceftriaxone. PHYSICAL EXAMINATION: Temperature 98, pulse 85, respiration 16, blood pressure 109/79, pulse 96% on room air. GENERAL APPEARANCE: Lying in bed awake. EYES: Pupils equal. Conjunctivae normal. HEENT: External nose and ears normal. Oral cavity normal. NECK: JVD not raised. Mass not palpable. RESPIRATORY: Effort, lungs are clear. CARDIOVASCULAR: 1st and 2nd sounds normal. No edema. ABDOMEN: Epigastric tenderness. No guarding or rigidity. Liver and spleen not palpable. PSYCHIATRY: Alert and oriented x3. Mood and affect tired-appearing. INVESTIGATIONS: White count 8, potassium 3.6. AST, ALT is normal. ASSESSMENT: 1. Patient is status post cholecystectomy with epigastric pain, slight elevation of white count when she had come in that resolved. This pain could be postoperative inflammatory pain, non infectious. 2. Diabetes mellitus type 2 on oral hypoglycemic. 3. Gastroesophageal reflux disease. 4. Essential hypertension. 5. Primary osteoarthritis. 6. Peripheral neuropathy secondary to diabetes. 7. Chronic nicotine dependence in a cigarette smoker. 8. Diverticulosis. 9. 1.9 cm liver lesion. PLAN: Awaiting input from an ID. Will also get input from GI just to make sure we are not missing anything. The patient's diet has been advanced per Surgery. See how she does. MMODL / IJN: [id number] /
[2017-07-31] MEDS: TRESIBA 15 UNIT SQ SCH (20:15)
[2017-07-31] MEDS: LISINOPRIL 5 MG TAB PO SCH (20:15)
[2017-07-31] MEDS ORDERED: MORPHINE ORAL SOLN 10 MG/5 ML CUP PO PRN (21:41)
--- NOTE | 2017-07-31 23:11 | P.CONS ---
History of Present Illness - Reason for Consult Consult date: 07/31/17 - Chief Complaint Leukocytosis - History of Present Illness 56-year-old female presents to Hospital with complaints of abdominal pain nausea and emesis. The patient underwent a laparoscopic cholecystectomy now 2 weeks ago. She relates was doing well for a few days after the procedure and started having increasing amounts of epigastric abdominal pain associated with worsening nausea and emesis. Having increasing difficulties with eating and drinking on a daily basis. She continued to have ongoing abdominal pain. Outpatient evaluations were performed. She overhead increasing symptoms failure of outpatient treatments and constantly was admitted. The time of admission had evidence of some mild lactic acidosis and with rehydration and treatment of her significant nausea and emesis she's feeling considerably better. Continues to have her midepigastric abdominal pain when she eats. She' s had imaging studies and there is no concern for the possibility of a liver lesion. The patient is concerned because she's had nearly an 80 pound loss of weight that she has not tried to have occur. She was that she may feel cold at times, but is not having fevers or chills no rigors. She does feel very poorly overall. Review of Systems HEENT:Denies headache or acute visual change. Denies sinus or mouth discomforts. Denies neck stiffness or pain. Denies significant oral cavity pain. Denies difficulty on swallowing. Lungs: Denies significant shortness of breath, cough, sputum production, or hemoptysis. Cardiovascular: Denies significant shortness of breath, chest pain, chest wall pain, orthopnea, dyspnea on exertion, syncope Gastrointestinal: As per the HPI has been having weeks of significant abdominal discomforts associated with nausea and emesis but no hematemesis no melena or hematochezia. Musculoskeletal: denies significant myalgias or arthralgias. No new joint swelling. Denies new back pain. Skin: Denies new rash or lesions. No new ulcers or wounds are related.. Neuro: Denies headache or visual change. Denies any new onset weakness or difficulty with ambulation. Denies falls or seizures. Psychiatric:Denies anxiety or depression. Endocrine: Profound fatigue and 80 pounds of weight loss, unintentional Past Medical History Past Medical History: Diabetes Mellitus, GERD/Reflux, Hypertension, Osteoarthritis (OA) Additional Past Medical History / Comment(s): IDDM type II, peripheral neuropathy bilateral feet, back pain, hemorrhoids, diverticular dx, UTI History of Any Multi-Drug Resistant Organisms: None Reported Past Surgical History: Back Surgery, Breast Surgery, Cholecystectomy, Orthopedic Surgery Additional Past Surgical History / Comment(s): 04/2017 COLONOSCOPY, 07/16/17 LAP HENRY, PARTIAL RIGHT MASTECTOMY (FALSE POSITIVE), COLONOSCOPY, RT ROTATOR CUFF REPAIR Past Anesthesia/Blood Transfusion Reactions: No Reported Reaction Additional Psychological History / Comment(s): lives with her . Works for a local company in the office. International travel was to [place] related to her work several years ago no illness while she was there upon her return. Is a tobacco smoker has a patch on at this time. No stated alcohol use and no history of injection recreational drug use. 2 pet Cats in the home that have been there for many years. Smoking Status: Current every day smoker - Past Family History Daughter(s) Additional Family Medical History / Comment(s): PRE- OVARIAN CANCER Mother Family Medical History: Hyperlipidemia, Hypertension Father Family Medical History: Diabetes Mellitus, Hyperlipidemia, Hypertension Medications and Allergies Home Medications and Allergies Comment(s): Current Medications Acetaminophen (Tylenol Tab) 650 mg PO Q6HR PRN PRN Reason: Fever and/ or Pain Last Admin: 07/30/17 17:01 Dose: 650 mg Ceftriaxone Sodium (Rocephin) 1,000 mg IVP Q24HR [facility] Last Admin: 07/31/17 08:20 Dose: 1,000 mg Enoxaparin Sodium (Lovenox) 40 mg SQ DAILY [facility] Last Admin: 07/31/17 08:17 Dose: 40 mg Sodium Chloride (Saline 0.9%) 1,000 mls @ 100 mls/hr IV .Q10H [facility] Last Admin: 07/31/17 05:58 Dose: 100 mls/hr Insulin Aspart (Novolog) 0 unit SQ ACHS [facility] PRN Reason: Protocol Last Admin: 07/31/17 20:15 Dose: Not Given Lisinopril (Zestril) 5 mg PO HS [facility] Last Admin: 07/31/17 20:15 Dose: Not Given Metformin HCl (Glucophage) 500 mg PO BID-W/MEALS [facility] Last Admin: 07/31/17 16:40 Dose: Not Given Morphine Sulfate (Morphine Oral Gisell 2mg/Ml) 12 mg PO Q4HR PRN PRN Reason: Severe Pain Naloxone HCl (Narcan) 0.2 mg IV Q2M PRN PRN Reason: Opioid Reversal Nicotine (Habitrol 21mg/24hr Patch) 1 patch TRANSDERM DAILY [facility] Last Admin: 07/31/17 08:16 Dose: 1 patch Non-Formulary Drug ( (Tresiba 15 Unit)) 15 unit SQ [facility] Last Admin: 07/31/17 20:15 Dose: Not Given Ondansetron HCl (Zofran) 4 mg IVP Q8HR PRN PRN Reason: Nausea And Vomiting Last Admin: 07/31/17 17:44 Dose: 4 mg Ondansetron HCl (Zofran) 4 mg PO TID PRN PRN Reason: Nausea Pantoprazole Sodium (Protonix) 40 mg PO AC-BRKFST [facility] Last Admin: 07/31/17 07:58 Dose: 40 mg Home Medications Medication Instructions Recorded Confirmed Type metFORMIN HCL [Glucophage] 500 mg PO BID #30 tab 05/08/17 07/29/17 Rx Insulin Degludec [Tresiba 15 unit SQ 07/15/17 07/29/17 History Flextouch U-100] Lisinopril [Zestril] 5 mg PO 07/15/17 07/29/17 History Omeprazole 40 mg PO DAILY 07/29/17 07/29/17 History Ondansetron [Zofran] 4 mg PO TID PRN 07/29/17 07/29/17 History Allergies Allergy/AdvReac Type Severity Reaction Status Date / Time bee venom protein (honey bee) Allergy Anaphylaxis Verified 07/29/17 09:10 Physical Exam Vitals: Vital Signs Temp Pulse Resp BP Pulse Ox 07/31/17 21:06 98.0 F 82 16 112/68 98 07/31/17 16:00 69 16 07/31/17 15:00 98.0 F 85 16 119/79 96 07/31/17 08:00 69 16 07/31/17 07:00 98.7 F 69 16 111/74 96 07/31/17 02:35 100/65 Intake and Output 07/31/17 07/31/17 07/31/17 06:59 14:59 22:59 Intake Total 900 240 Balance 900 240 Intake: IV 900 Sodium Chloride 0.9% 1, 900 000 ml @ 100 mls/hr IV . Q10H [facility] Rx#:[id number] Oral 240 Other: Voiding Method Toilet Toilet # Voids 1 2 1 56-year-old woman who is modestly comfortable at this time. She however is concerned because she's had about 80 pounds of weight loss, this is moved her from obesity to overweight. HEENT: Anicteric conjunctiva are pink and moist nasal mucosa grossly intact without significant lesions, there is no thrush. Neck: The neck is supple without significant lymphadenopathy or thyromegaly. Lungs: Good bilateral air entry without significant crackles or wheezing. There is no significant bronchial sounds. There is no egophony or dullness. Heart: Regular rate and rhythm with an audible S1-S2, no S3 no S4. There is no significant murmur click or rub, PMI was nondisplaced. Abdomen: Positive bowel sounds soft there is distinct tenderness in epigastric area without palpable mass in this area no other abdominal palpable masses or organomegaly. There was no guarding or rebound. Extremities: The upper extremities have excellent pulses they are symmetric, no significant petechiae or telangiectasia. No splinter hemorrhages were noted. The lower extremities are free from significant edema. The peripheral pulses were 2+ and symmetric. Neuro: Awake alert oriented to person place and time. There are no acute new gross focal sensory motor deficits. Results CBC & Chem 7: 07/30/17 07:30 07/30/17 07:30 Labs: Abnormal Lab Results - Last 24 Hours (Table) 07/31/17 07/31/17 07/31/17 Range/Units 07:19 11:31 17:21 POC Glucose (mg/dL) 123 H 126 H 185 H (75-99) mg/dL 07/31/17 Range/Units 19:35 POC Glucose (mg/dL) 137 H (75-99) mg/dL Laboratory Results WBC 8.0 k/uL (3.8-10.6) 07/30/17 07:30 RBC 4.25 m/uL (3.80-5.40) 07/30/17 07:30 Hgb 12.4 gm/dL (11.4-16.0) 07/30/17 07:30 Hct 36.5 % (34.0-46.0) 07/30/17 07:30 MCV 85.8 fL (80.0-100.0) 07/30/17 07:30 MCH 29.2 pg (25.0-35.0) 07/30/17 07:30 MCHC 34.0 g/dL (31.0-37.0) 07/30/17 07:30 RDW 12.7 % (11.5-15.5) 07/30/17 07:30 Plt Count 203 k/uL (150-450) 07/30/17 07:30 Neutrophils % 30 % 07/30/17 07:30 Lymphocytes % 59 % 07/30/17 07:30 Monocytes % 5 % 07/30/17 07:30 Eosinophils % 2 % 07/30/17 07:30 Basophils % 1 % 07/30/17 07:30 Neutrophils # 2.4 k/uL (1.3-7.7) 07/30/17 07:30 Lymphocytes # 4.7 k/uL (1.0-4.8) 07/30/17 07:30 Monocytes # 0.4 k/uL (0-1.0) 07/30/17 07:30 Eosinophils # 0.2 k/uL (0-0.7) 07/30/17 07:30 Basophils # 0.1 k/uL (0-0.2) 07/30/17 07:30 RBC Morphology Normal 07/30/17 07:30 Sodium 144 mmol/L (137-145) 07/30/17 07:30 Potassium 3.6 mmol/L (3.5-5.1) 07/30/17 07:30 Chloride 108 mmol/L (98-107) H 07/30/17 07:30 Carbon Dioxide 26 mmol/L (22-30) 07/30/17 07:30 Anion Gap 10 mmol/L 07/30/17 07:30 BUN 14 mg/dL (7-17) 07/30/17 07:30 Creatinine 0.65 mg/dL (0.52-1.04) 07/30/17 07:30 Est GFR (CKD-EPI)AfAm >90 (>60 ml/min/1.73 sqM) 07/30/17 07:30 Est GFR (CKD-EPI)NonAf >90 (>60 ml/min/1.73 sqM) 07/30/17 07:30 Glucose 74 mg/dL (74-99) 07/30/17 07:30 POC Glucose (mg/dL) 137 mg/dL (75-99) H 07/31/17 19:35 POC Glu Metal Reclamation Kettle Tender Annabelle Echols 07/31/17 19:35 Lactic Ac Sepsis Rflx Y 07/29/17 10:03 Plasma Lactic Acid Jesus 1.3 mmol/L (0.7-2.0) 07/29/17 13:10 Calcium 9.0 mg/dL (8.4-10.2) 07/30/17 07:30 Total Bilirubin 0.2 mg/dL (0.2-1.3) 07/30/17 07:30 AST 27 U/L (14-36) 07/30/17 07:30 ALT 41 U/L (9-52) 07/30/17 07:30 Alkaline Phosphatase 91 U/L (38-126) 07/30/17 07:30 Troponin I <0.012 ng/mL (0.000-0.034) 07/29/17 09:44 Total Protein 5.5 g/dL (6.3-8.2) L 07/30/17 07:30 Albumin 3.2 g/dL (3.5-5.0) L 07/30/17 07:30 Amylase 34 U/L (30-110) 07/29/17 09:23 Lipase 102 U/L (23-300) 07/29/17 09:23 Urine Color Yellow 07/29/17 15:30 Urine Appearance Clear (Clear) 07/29/17 15:30 Urine pH 6.5 (5.0-8.0) 07/29/17 15:30 Ur Specific Morrow >1.050 (1.001-1.035) H 07/29/17 15:30 Urine Protein 1+ (Negative) H 07/29/17 15:30 Urine Glucose (UA) Negative (Negative) 07/29/17 15:30 Urine Ketones 1+ (Negative) H 07/29/17 15:30 Urine Blood Negative (Negative) 07/29/17 15:30 Urine Nitrite Negative (Negative) 07/29/17 15:30 Urine Bilirubin Negative (Negative) 07/29/17 15:30 Urine Urobilinogen <2.0 mg/dL (<2.0) 07/29/17 15:30 Ur Leukocyte Esterase Negative (Negative) 07/29/17 15:30 Urine RBC 2 /hpf (0-5) 07/29/17 15:30 Urine WBC 1 /hpf (0-5) 07/29/17 15:30 Ur Squamous Epith Cells 4 /hpf (0-4) 07/29/17 15:30 Urine Mucus Rare /hpf (None) H 07/29/17 15:30 Assessment and Plan (1) Weight loss, unintentional Narrative/Plan: 56-year-old female presents to Hospital with a several-day history of worsening nausea emesis and epigastric abdominal pain. It is noted the patient has had a laparoscopic cholecystectomy a few weeks prior to her admission and is having outpatient follow-up without improvement. With admission and hydration and antiemetic therapy she's feeling better and looks forward to attempting some further food intake today. She is concerned that when she each is again have significant recurrence of her nausea and emesis. Carafate can be added to see if this can improve her symptoms since it appears that she may have a mild hiatal hernia. The patient however does have a leukocytosis and has noted nearly 80 pounds of weight loss that has been unintentional. She does have a lesion that has been noted on her liver that was not seen on previous imaging studies but has not been seen on both CAT scan and MRI. There has been an oncology consult already. The patient was placed on Rocephin and it's not clear there's been any improvement of her symptoms. There is significant concern that the liver lesion is the etiology of her current symptoms and likely will undergo a biopsy of this in the near future. Unclear if this will be via interventional radiology or will need to be done and a laparoscopic fashion. We'll complete the workup for underlying viral hepatitis or other infections that can have impact. As noted cultures are negative. Current Visit: Yes Status: Acute Code(s): R63.4 - ABNORMAL WEIGHT LOSS SNOMED Code(s): 644578615 (2) Epigastric pain Current Visit: Yes Status: Acute Code(s): R10.13 - EPIGASTRIC PAIN SNOMED Code(s): 36083053 (3) Hepatic lesion Current Visit: Yes Status: Acute Code(s): K76.9 - LIVER DISEASE, UNSPECIFIED SNOMED Code(s): 322386163 (4) Nausea & vomiting Current Visit: Yes Status: Acute Code(s): R11.2 - NAUSEA WITH VOMITING, UNSPECIFIED SNOMED Code(s): 74005832 (5) S/P cholecystectomy Current Visit: Yes Status: Acute Code(s): Z90.49 - ACQUIRED ABSENCE OF OTHER SPECIFIED PARTS OF DIGESTIVE TRACT SNOMED Code(s): 315407610
[2017-08-01] MEDS: SODIUM CHLORIDE 0.9% 1,000 ML IV SCH (00:05)
[2017-08-01 05:53] LABS: Glucose,Whole Blood 144 mg/dL (75-99)
[2017-08-01] MEDS: cefTRIAXone IN SWFI 1,000 MG/10 ML SYRINGE IVP SCH (07:22)
[2017-08-01] MEDS: NICOTINE 21MG/24HR PATCH TRANSDERM SCH (07:22)
[2017-08-01] MEDS: PANTOPRAZOLE 40 MG TABLET PO SCH (07:23)
[2017-08-01] MEDS: ENOXAPARIN 40 MG/0.4 ML SYRINGE SQ SCH (07:23)
[2017-08-01] MEDS: ONDANSETRON 4 MG/2 ML VIAL IVP PRN (07:23)
[2017-08-01] MEDS: metFORMIN 500 MG TAB PO SCH (07:24)
[2017-08-01] MEDS: INSULIN ASPART 100 UNIT/ML 1 ML 10 ML VIAL SQ SCH (07:24)
[2017-08-01 08:00] VITALS: BP 102/54; PULSE 80; TEMP 98.3
[2017-08-01 12:03] LABS: Glucose,Whole Blood 129 mg/dL (75-99)
[2017-08-01 12:10] LABS: Hepatitis A Antibody IgM Non-Reactive (Non-Reactive); Hepatitis B Core IgM Non-Reactive (Non-Reactive)
--- NOTE | 2017-08-01 14:49 | CONS ---
CONSULTATION REASON FOR CONSULTATION: Epigastric pain. HISTORY OF PRESENT ILLNESS: The patient is a 56-year-old pleasant white female who underwent laparoscopic cholecystectomy for gallstones about 2 weeks ago. Following the surgery, she did well for 3 or 4 days and then she started having severe epigastric pain associated with nausea, vomiting. The pain was so intense she came into the emergency room and subsequently admitted for further evaluation. She had a CT of the chest done that was unremarkable. Subsequently, she had a CT of the abdomen and pelvis done that was unremarkable except for a small lesion noted in the liver and this was followed by an MRI of the liver that showed a 1.9 cm lesion and possibility of neoplasm could not be excluded. In the meantime because of the epigastric pain she has been on Protonix as well as antiemetics and this morning she is feeling much better. She has had some vague discomfort. Denies any heartburn. She is on a regular diet this morning, able to tolerate well. In regards to the liver lesion, oncology has been consulted. PAST MEDICAL HISTORY: Significant for diabetes mellitus, hypertension, hyperlipidemia, degenerative joint disease, peripheral neuropathy, chronic back pain. PAST SURGICAL HISTORY: Back surgery, breast surgery, cholecystectomy, colonoscopy April of 2017, right mastectomy, right rotator cuff repair. SOCIAL HISTORY: No smoking or alcohol use. MEDICATIONS: At home include Glucophage, Zestril, Prilosec, insulin, Zofran. ALLERGIES: BEE VENOM REVIEW OF SYSTEMS: CARDIOPULMONARY: No chest pain, shortness of breath. GENITOURINARY: No dysuria or hematuria. MUSCULOSKELETAL: Unremarkable. SKIN: Unremarkable. ENDOCRINE: Unremarkable. PSYCHIATRIC: Unremarkable. NEUROLOGY: Unremarkable. ENT/VISION: Unremarkable. CONSTITUTIONAL: Weight loss of 80 pounds unintentional in the last 3 months. No fever, chills, night sweats. PHYSICAL EXAMINATION: She appears comfortable, no apparent distress. Vital signs are stable. Blood pressure is 133/86, pulse 84 per minute and afebrile. HEENT EXAMINATION: Unremarkable. Conjunctivae pink, sclerae anicteric. Oral cavity no lesions. NECK: No JVD or lymph node enlargement. Chest was clear to auscultation. HEART: Regular rate and rhythm. ABDOMEN: Mild tenderness in the epigastric area was benign. No organomegaly. EXTREMITIES: No pedal edema. SKIN: No rashes. NEUROLOGIC: Alert and oriented x3. No focal deficits. LABS: At the time of admission the hospital: WBC 8, hemoglobin 12.4, platelets normal. Basic metabolic panel is within normal limits. Amylase and lipase is normal. CT of the abdomen and pelvis done 3 days ago showed mild thickening of the hepatic flexure, indeterminate right hepatic lesion and adrenal gland nodule. She did have an MRI of the liver done yesterday that showed a 1.9 cm indeterminate lesion in the right lobe of the liver and possibility of neoplasm could not be excluded. Further imaging studies were recommended by the radiologist. IMPRESSION: This is a lady who presents with severe epigastric pain associated with nausea, vomiting for the last 1 week duration. She is status post gallbladder surgery for symptomatic gallstones [address] Burgos. The patient had extensive workup while in the hospital including a CTA of the chest that was negative for PE. CT of the abdomen and pelvis showed some mild thickening of the right hepatic flexure and small lesion in the liver. MRI of the liver showed a 1.9 cm indeterminate lesion in the liver which I doubt is causing any of her symptoms at the present time. She also had an EGD about 2 weeks prior to the surgery by Dr. Mai, which was unremarkable. In any event, presently, she has been on proton pump inhibitors, antiemetics, and this morning she is feeling much better. Able to tolerate diet reasonably well. RECOMMENDATION: 1. Continue with Protonix and Carafate. 2. Antiemetics as needed. 3. Follow up with Oncology for the liver lesion. 4. No need for any endoscopy intervention at the present time. Thank you for this consultation. MMODL / IJN: [id number] /
--- NOTE | 2017-08-01 15:28 | DS ---
DISCHARGE SUMMARY DATE OF ADMISSION: July 29, 2017. DATE OF DISCHARGE: August 01, 2017. FINAL DIAGNOSES: 1. Acute epigastric pain probably postop inflammation from recent cholecystectomy, resolved, felt to be non infectious after workup. 2. Diabetes mellitus type 2 on oral hypoglycemic. 3. Gastroesophageal reflux disease. 4. Essential hypertension. 5. Primary osteoarthritis. 6. Peripheral neuropathy secondary to diabetes. 7. Chronic nicotine dependence patient is a cigarette smoker. 8. Colonic diverticulosis. 9. 1.9 cm liver lesion to be followed up as an outpatient. HOSPITAL COURSE: This is a patient status post cholecystectomy presented with epigastric pain, not able to keep any food down. Patient had an extensive workup done. Liver lesion showed a 1.9 cm lesion seen by oncology, Dr. Underwood for further workup as an outpatient. At this point is not felt to be too significant. Also discussed with Dr. Kiki Blackwood from GI who also saw the patient. The patient has done remarkably well, improved, tolerating a diet now. The patient had a slight white count when she came in, could be from inflammation itself that actually came down. Infection workup was all negative. Patient is tolerating a diet. On exam abdomen soft, nontender. Lungs are clear. Care was discussed with the patient. I discussed with Dr. Cifuentes over the phone. Also spoke to Dr. Underwood from Oncology and also spoke with Dr. Jayne Blackwood, okay from everybody talk to the patient. The patient tolerating a diet. DISCHARGE MEDICATIONS: 1. Glucophage 100 mg p.o. b.i.d. 2. Tarceva 15 units subcu q.h.s. 3. Zestril 5 mg q.h.s. 4. Omeprazole 40 mg p.o. daily. 5. Zofran 4 mg t.i.d. p.r.n. 6. Nicotine patch 21. FOLLOW UP: With Dr. Sandoval in 3 days. Follow up with Dr. Burgos in 1 week. Follow up with Dr. Og in 1 week. Diet soft bland diabetic diet. Discussion and discharge planning more than [address] Sandoval. MMODL / IJN: [id number] /
== END 2017-08-01 12:55 | disposition home or self-care (01) | DRG 641 ==
LOC: EC 09:01 → 5ONC 11:58
PROVIDERS: ADMIT Hospitalist; ATTEND Hospitalist
DX: E86.0 Dehydration (principal); E11.42 Type 2 diabetes mellitus with diabetic polyneuropathy; E87.2 Acidosis; R10.13 Epigastric pain; K21.9 Gastro-esophageal reflux disease without esophagitis; I10 Essential (primary) hypertension; R19.7 Diarrhea, unspecified; K76.9 Liver disease, unspecified; F17.210 Nicotine dependence, cigarettes, uncomplicated; K57.90 Diverticulosis of intestine, part unspecified, without perforation or abscess without bleeding; G89.18 Other acute postprocedural pain; R63.4 Abnormal weight loss; D72.829 Elevated white blood cell count, unspecified; R11.2 Nausea with vomiting, unspecified; E78.5 Hyperlipidemia, unspecified; K44.9 Diaphragmatic hernia without obstruction or gangrene; E66.3 Overweight; K57.30 Diverticulosis of large intestine without perforation or abscess without bleeding; M19.91 Primary osteoarthritis, unspecified site; Z80.41 Family history of malignant neoplasm of ovary; Z83.3 Family history of diabetes mellitus; Z90.49 Acquired absence of other specified parts of digestive tract; Z90.11 Acquired absence of right breast and nipple; Z98.890 Other specified postprocedural states; Z82.49 Family history of ischemic heart disease and other diseases of the circulatory system; Z79.4 Long term (current) use of insulin; Z79.899 Other long term (current) drug therapy; Z91.030 Bee allergy status; Z68.28 Body mass index [BMI] 28.0-28.9, adult
CPT/HCPCS: 36415; 71046; 71275; 74018; 74177; 74183; 80053; 80074; 81001; 82150; 83516; 83605; 83690; 84484; 85025; 86038; 86780; 93005; 96361; 96374; 96375; 99285

== ENCOUNTER → 2017-10-25 | Outpatient (CLI) | payer BC ==
--- NOTE | 2017-10-26 11:41 | MM ---
Reason for exam: screening (asymptomatic). Last mammogram was performed 8 years and 9 months ago. History: Patient is postmenopausal. Family history of breast cancer in paternal grandmother. Took hormonal contraceptives for 6 years. Physical Findings: A clinical breast exam by your physician is recommended on an annual basis and results should be correlated with mammographic findings. MG Screening Mammo w CAD Bilateral CC and MLO view(s) were taken. Prior study comparison: February 01, 2009, bilateral diagnostic digital mammog. The breast tissue is heterogeneously dense. This may lower the sensitivity of mammography. There are at least two groups of calcifications in the upper outer quadrant on the left at middle depth, which can be measured more accurately on diagnostic mammogram magnification views. Additionally these appear associated with obscured masses. Right post therapy change. Left far post lateral asymmetry. ASSESSMENT: Incomplete: need additional imaging evaluation, BI-RAD 0 RECOMMENDATION: Special view mammogram of the left breast. [facility] will attempt to contact patient to return for supplemental views.
== END | disposition home or self-care (01) ==
LOC: RADMAMWWP 12:39
PROVIDERS: ATTEND Family Medicine
DX: Z12.31 Encounter for screening mammogram for malignant neoplasm of breast (principal)
CPT/HCPCS: 77067

== ENCOUNTER → 2017-10-29 | Outpatient (CLI) | payer BC ==
--- NOTE | 2017-11-01 09:00 | MM ---
Reason for exam: additional evaluation requested from abnormal screening. Last mammogram was performed less than 1 month ago. History: Patient is postmenopausal. Family history of breast cancer in paternal grandmother. Lumpectomy of the right breast, 2008. Took hormonal contraceptives for 6 years. Physical Findings: Nurse did not find any significant physical abnormalities on exam. MG 3D Work Up W/Cad LT CC and MLO view(s) were taken of the left breast. Prior study comparison: October 25, 2017, bilateral MG screening mammo w CAD. February 01, 2009, bilateral diagnostic digital mammog. The breast tissue is heterogeneously dense. This may lower the sensitivity of mammography. Finding: There are intermediate concern, suspicious diffuse/scattered calcifications in the upper outer quadrant of the left breast. New finding since October 25, 2017 and February 01, 2009. These results were verbally communicated with the patient and result sheet given to the patient on 10/29/17. ASSESSMENT: Incomplete: need additional imaging evaluation, BI-RAD 0 RECOMMENDATION: Ultrasound of the left breast.
--- NOTE | 2017-11-01 09:08 | USB ---
Reason for exam: additional evaluation requested from abnormal screening. History: Patient is postmenopausal. Family history of breast cancer in paternal grandmother. Lumpectomy of the right breast, 2008. Took hormonal contraceptives for 6 years. US Breast Workup LT Technologist: Monse Duncan RT (R)(M) Left complete breast ultrasound includes all four quadrants, the retroareolar region and axilla. Finding demonstrates no cystic or solid lesion seen. These results were verbally communicated with the patient and result sheet given to the patient on 10/29/17. ASSESSMENT: Negative, BI-RAD 1 RECOMMENDATION: Stereotactic core biopsy of the left breast. Called with mammographic findings and has scheduled an appointment for the patient for 11/01/17 at 4:[address] Hughes. PRELIMINARY REPORT CALLED AND FAXED TO DR. HUGHES ON 11/01/17.
== END | disposition home or self-care (01) ==
LOC: RADMAMWWP 08:15
PROVIDERS: ATTEND Family Medicine
DX: R92.8 Other abnormal and inconclusive findings on diagnostic imaging of breast (principal)
CPT/HCPCS: 77061; 77065

== ENCOUNTER → 2017-11-05 | Day surgery (SDC) | payer BC ==
[2017-11-05 07:22] VITALS: RESP 16; BMI 29.8
[2017-11-05 09:26] VITALS: BP 125/82; PULSE 88; TEMP 98.5
--- NOTE | 2017-11-05 14:30 | MM ---
EXAMINATION TYPE: MG stereo VAD BX LT DATE OF EXAM: 11/05/2017 COMPARISON: 10/26/2017 CLINICAL HISTORY: Indeterminate left breast calcifications for which stereotactic biopsy was recommended. TECHNIQUE: Stereotactic guided core biopsy of left breast. FINDINGS: The procedure of stereotactic guided core biopsy was explained to the patient. Benefits, alternatives, and risks were discussed. An informed consent was then obtained. Preprocedural timeout was performed. The shortness pathway for biopsy was chosen. Shortness pathway was CC from above approach. 10 cc of lidocaine was utilized to anesthetize the subcutaneous tissues and skin surface. 10 cc of lidocaine with epinephrine was then utilized to anesthetize the tissues at the site of biopsy after the needle was advanced to the site of biopsy and preprocedural localization images were obtained. A vacuum assisted biopsy gun was used to obtain 7 core samples. The patient tolerated the procedure well without any immediate complication. The patient was kept in the radiology department for short stay after the procedure and then discharged home in stable condition. Targeted calcifications are identified in specimen mammogram. Post biopsy mammogram shows the marker to appear in satisfactory position relative to the targeted area of concern on the preprocedure images. IMPRESSION: SUCCESSFUL, UNCOMPLICATED STEREOTACTIC GUIDED CORE BIOPSY THE MOST SUSPICIOUS GROUP OF CALCIFICATIONS IN THE UPPER OUTER QUADRANT OF THE LEFT BREAST, FULL PATHOLOGY RESULTS TO FOLLOW. THE REMAINING RIBS OR CALCIFICATIONS CAN BE FOLLOWED WITH 6 MONTH SHORT-TERM FOLLOW-UP IF RESULTS OF THIS BIOPSY ARE BENIGN. IF RESULTS ARE MALIGNANT ADDITIONAL BIOPSIES COULD BE PERFORMED OF THE MOST ANTERIOR AND POSTERIOR GROUPS TO ESTABLISH EXTENT OF DISEASE. Pathology Results: Benign BREAST, LEFT, STEREOTACTIC CORE BIOPSY: Fibrocystic changes including cysts, fibrosis, apocrine metaplasia and calcifications. Recommendation Follow up mammogram of the left breast in 6 months. [facility]
== END ==
LOC: RADMAMWWP 06:48
PROVIDERS: ATTEND Family Medicine
DX: N60.32 Fibrosclerosis of left breast (principal); N60.82 Other benign mammary dysplasias of left breast; R92.1 Mammographic calcification found on diagnostic imaging of breast; R92.8 Other abnormal and inconclusive findings on diagnostic imaging of breast
CPT/HCPCS: 88305; 19081; A4648; J2001

== ENCOUNTER → 2018-04-29 | Outpatient (CLI) | payer BC ==
[2018-04-29 09:22] LABS: Blood Urea Nitrogen 12 mg/dL (7-17)
--- NOTE | 2018-04-29 16:15 | CT ---
EXAMINATION TYPE: CT abdomen wo/w con DATE OF EXAM: 04/29/2018 COMPARISON: 07/29/2017 INDICATION: Upper abdominal pain-left side DLP: 1549.8 mGycm, Automated exposure control for dose reduction was used. CONTRAST: 100 mL of Isovue 300. Study performed with Oral Contrast TECHNIQUE: Axial images were obtained from above the diaphragm to the pubic rami in the axial plane a t 5 mm thick sections. Reconstructed images are reviewed on the computer in the coronal plane. FINDINGS: Limited CT sections are obtained the lung bases. The lung bases are clear. CT ABDOMEN: Liver: Normal Spleen: Normal Pancreas: Normal Adrenal glands: The adrenal glands are normal. Gallbladder: Not identified Kidneys: No masses are evident. No hydronephrosis is present. Tiny posterior left apical renal ralph ex cyst may be present measuring 0.7 cm. Delayed images were obtained through the kidneys, which rem ain unremarkable. Aorta: Vascular calcification is within the aorta. AP diameter with abdominal aorta is 2.1 cm. Inferior vena cava: Normal. Osseous structures: Degenerative disc changes are in the lower lumbar spine. IMPRESSIONS: 1. No suspicious anomaly to account for left upper quadrant pain
== END | disposition home or self-care (01) ==
LOC: RADCTMAIN 08:21
PROVIDERS: ATTEND Family Medicine
DX: R10.12 Left upper quadrant pain (principal)
CPT/HCPCS: 82565; 84520; 74170; 36415; Q9967

== ENCOUNTER → 2018-05-11 | Outpatient (CLI) | payer BC ==
--- NOTE | 2018-05-14 16:25 | MM ---
Reason for exam: follow-up at short interval from prior study. Last mammogram was performed 6 months ago. History: Patient is postmenopausal. Family history of breast cancer in paternal grandmother. Benign MG stereo VAD BX LT of the left breast, November 05, 2017. Excisional biopsy of the right breast, 2008. Took hormonal contraceptives for 6 years. Physical Findings: Nurse did not find any significant physical abnormalities on exam. MG Diagnostic Mammo LT w CAD CC and MLO view(s) were taken of the left breast. Prior study comparison: October 29, 2017, left breast MG 3d work up w/cad LT. October 25, 2017, bilateral MG screening mammo w CAD. The breast tissue is heterogeneously dense. This may lower the sensitivity of mammography. Left breast previous mammotome biopsy. No significant new finding when compared with prior studies. These results were verbally communicated with the patient and result sheet given to the patient on 05/11/18. ASSESSMENT: Benign, BI-RAD 2 RECOMMENDATION: Routine screening mammogram of both breasts in 6 months.
== END | disposition home or self-care (01) ==
LOC: RADMAMWWP 10:42
PROVIDERS: ATTEND Family Medicine
DX: R92.8 Other abnormal and inconclusive findings on diagnostic imaging of breast (principal); R92.1 Mammographic calcification found on diagnostic imaging of breast; N60.12 Diffuse cystic mastopathy of left breast
CPT/HCPCS: 77065

== ENCOUNTER → 2018-07-21 | Outpatient (CLI) | payer BC ==
--- NOTE | 2018-07-21 15:44 | US ---
EXAMINATION TYPE: US thyroid st tissue head/neck DATE OF EXAM: 07/21/2018 COMPARISON: NONE CLINICAL HISTORY: E07.[address] Spec[address] palpated nodule. GLAND SIZE: Right Lobe: 5.3 x 1.8 x 1.9 cm Overall Parenchyma: heterogenous Left Lobe: 5.3 x 2.2 x 2.3 cm Overall Parenchyma: heterogeneous Isthmus Thickness: 0.2 cm NODULES RIGHT: # of nodules measured on right: 2 1. 1.9 X 1.3 x 1.4 cm hypoechoic solid nodule at the lower pole with well-defined margins; present with microcalcifications. This nodule is wider than tall and shows intranodular vascularity. Prior size: no prior 2. 1.0 X 0.4 x 0.9 cm hypoechoic solid nodule at the lower pole with well-defined margins; . This n odule is wider than tall and shows intranodular vascularity. Prior size: no prior LEFT: # of nodules measured on left: 2 1. 2.3 X 1.5 x 1.8 cm hypoechoic mixed nodule at the lower pole with well-defined margins; . This nodule is wider than tall and shows no intranodular vascularity. Prior size: no prior 2. 2.2 X 2.3 x 1.9 cm hypoechoic solid nodule at the lower pole with well-defined margins; . This n odule is wider than tall and shows intranodular vascularity. Prior size: no prior ISTHMUS: # of nodules measured in the isthmus: 0 Bilateral neck scanned, no evidence of lymphadenopathy. Nodules as described. IMPRESSION: Nonspecific thyroid nodularity. The need to biopsy should be made on a clinical basis.
== END | disposition home or self-care (01) ==
LOC: RADUSWWP 15:16
PROVIDERS: ATTEND Family Medicine
DX: E04.2 Nontoxic multinodular goiter (principal)
CPT/HCPCS: 76536

== ENCOUNTER → 2019-11-16 | Outpatient (CLI) | payer BC ==
--- NOTE | 2019-11-16 10:02 | USB ---
Reason for exam: clinical finding. History: Patient is postmenopausal. Family history of breast cancer in paternal grandmother. Benign MG stereo VAD BX LT of the left breast, November 05, 2017. Lumpectomy of the right breast, 2008. Took hormonal contraceptives for 6 years. Physical Findings: Nurse Summary: diagnosed with mastitis left breast 2-3 weeks ago, Incision and drainage 2 weeks ago (nurse yanelis). US Breast BILAT Right complete breast ultrasound includes all four quadrants, the retroareolar region and axilla. Finding demonstrates a 0.4 x 0.3 x 0.3cm lesion too small to characterize at 3 o'clock. Left complete breast ultrasound includes all four quadrants, the retroareolar region and axilla. Finding demonstrates a 1.4 x 1.4 x 1.6cm cystic lesion at the posterior nipple. These results were verbally communicated with the patient and result sheet given to the patient on 11/16/19. ASSESSMENT: Incomplete: need additional imaging evaluation, BI-RAD 0 RECOMMENDATION: Special view mammogram of both breasts. Patient is due now for mammogram. Patient requests to schedule at a later date.
== END | disposition home or self-care (01) ==
LOC: RADUSWWP 08:34
PROVIDERS: ATTEND Surgery
DX: N61.1 Abscess of the breast and nipple (principal)

== ENCOUNTER → 2020-07-10 | Outpatient (CLI) | payer BC ==
--- NOTE | 2020-07-10 15:13 | US ---
EXAMINATION TYPE: US thyroid st tissue head/neck DATE OF EXAM: 07/10/2020 COMPARISON: NONE CLINICAL HISTORY: R22.1 localized swelling, mass or lump. Thyroid nodules. GLAND SIZE: Right Lobe: 4.9 x 2.2 x 2.2 cm Overall Parenchyma: heterogenous Left Lobe: cm Overall Parenchyma: Isthmus Thickness: cm NODULES RIGHT: # of nodules measured on right: 2 1. 1.3 X .9 x 1.1 cm, mid , solid or almost completely solid, hypoechoic nodule, which is wider ubaldo n tall, with smooth margins, without echogenic foci. Prior size: 1.0 x .4 x 0.9 cm 2. 1.6 X 1.2 x 1.5 cm, lower , solid or almost completely solid, hypoechoic nodule, which is wider than tall, with smooth margins, without echogenic foci. Prior size: 1.9 x 1.3 x 1.4 cm LEFT: # of nodules measured on left: 2 1. 2.0 X 1.4 x 1.8 cm, lower , mixed cystic and solid, hypoechoic nodule, which is wider than tall, with smooth margins, with echogenic foci. Prior size: 2.3 x 1.5 x 1.8 cm 2. 2.2 X 1.2 x 2.0 cm, lower , solid or almost completely solid, hypoechoic nodule, which is wider than tall, with smooth margins, with echogenic foci. TI-rads 4, moderately suspicious. Fine needle a spiration recommended if this has not been previously biopsied. Prior size: 2.2 x 2.3 x 1.9 cm ISTHMUS: # of nodules measured in the isthmus: 0 Bilateral neck scanned, no evidence of lymphadenopathy. IMPRESSION: Moderately suspicious nodule left lobe thyroid, increasing in size from comparison, lower left lobe s olid nodule. Fine-needle aspiration recommended 2017 ACR TI-RADS LEVEL: TR-RADS 4 - Moderately Suspicious: Follow if > 1 cm, FNA if > 1.5 cm *Highest TI-RADS level nodule reported
== END ==
LOC: RADUSWWP 14:26
PROVIDERS: ATTEND Family Medicine
DX: E04.2 Nontoxic multinodular goiter (principal)
CPT/HCPCS: 76536

== ENCOUNTER → 2023-02-10 | Outpatient (CLI) | payer BC ==
--- NOTE | 2023-02-10 15:28 | XR ---
EXAMINATION TYPE: XR chest 2V DATE OF EXAM: 02/10/2023 COMPARISON: 07/29/2017 TECHNIQUE: PA and lateral views submitted. HISTORY: Presurgical FINDINGS: The lungs are clear and there is no pneumothorax, pleural effusion, or focal pneumonia. Heart size normal and no overt failure. Osseous structures demonstrate hypertrophic and degenerative changes of the spine. Shoulder arthropathy. Hyperinflation suggests COPD. Enlarged pulmonary arteries compatible with pulmonary arterial hypertension. Surgical clips overlying the right breast. IMPRESSION: 1. No acute process.
[2023-02-10 15:42] LABS: INR 0.9 (<1.2); Partial Thromboplastin Time 23.8 sec (22.0-30.0); Prothrombin Time 10.2 sec (10.0-12.5)
[2023-02-10 20:38] LABS: HCT 42.2 % (37.2-46.3); HGB 13.5 d/dL (12.0-15.0); MCH 29.5 pg (27.0-32.0); MCV 92.1 FL (80.0-97.0); Mean Platelet Volume 11.8 FL (9.5-12.2); NRBC Per 100 WBC 0 X 10*3/uL (0.00-0.01); Platelet Count 199 X 10*3/uL (140-440); RBC 4.58 X 10*6/uL (4.10-5.20); RDW 13.1 % (11.5-14.5); WBC 7.92 X 10*3/uL (4.50-10.00)
[2023-02-10 20:43] LABS: Blood Urea Nitrogen 12.4 mg/dL (9.0-27.0); Calcium 9.4 mg/dL (8.7-10.3); Carbon Dioxide 25.3 mmol/L (21.6-31.8); Chloride 105 mmol/L (96-109); Glucose 166 mg/dL (70-110); Potassium 3.8 mmol/L (3.5-5.5); Sodium 142 mmol/L (135-145)
[2023-02-11 05:43] LABS: Appearance,Urine Cloudy (Clear); Bilirubin,Urine Negative (Negative); Blood,Urine Trace (Negative); Color,Urine Yellow (Yellow); Ketones,Urine Negative (Negative); Nitrite,Urine Negative (Negative); PH, Urine 6.5; Specific Gravity,Urine 1.013 (1.001-1.030); Urobilinogen,Urine 0.2 E.U./DL
[2023-02-11 05:51] LABS: Bacteria,Urine 3+ (None Seen); Calcium Oxalate Crystals,Urine Present (None Seen)
== END | disposition home or self-care (01) ==
LOC: LABWHC1 14:23
PROVIDERS: ATTEND Orthopaedic Surgery Orthopaedic Surgery of the Spine
DX: Z01.818 Encounter for other preprocedural examination (principal)
CPT/HCPCS: 36415; 71046; 80048; 81001; 85027; 85610; 85730; 87070

== ENCOUNTER → 2023-03-01 | Outpatient (CLI) | payer BC | END | disposition home or self-care (01) | LOC: LABWHC1 10:19 | PROVIDERS: ATTEND Orthopaedic Surgery Orthopaedic Surgery of the Spine | DX: Z01.818 Encounter for other preprocedural examination (principal) | CPT/HCPCS: 86850; 86900; 86901 ==

== ENCOUNTER 2023-03-03 11:44 | Day surgery (SDC) | payer BC ==
[2023-02-26 09:06] VITALS: BMI 29.3
[~2023-03-03 11:44] MED LIST changes: -DEXAMETHASONE SOD PHOSPHATE 10 MG/ML 1 ML VIAL IV ONE; -HEPARIN SODIUM,PORCINE 5,000 UNIT/ML 1 ML VIAL SQ ONE; -LACTATED RINGERS 1,000 ML IV SCH; +LIDOCAINE 1% (10MG/ML) FOR IV START INTRADERMA PRN; -MIDAZOLAM 2 MG/2 ML VIAL IV PRN; -SCOPOLAMINE 1.5MG/72HR PATCH TRANSDERM ONE; +ceFAZolin 1,000 MG in SODIUM CHLORIDE 0.9% IRRIGATIO 1,000 ML IRRIGATION PRN; -ceFAZolin IN SWFI 2 GM/20 ML SYRINGE IVP ONE; -fentaNYL (PF) 50 MCG/ML 2 ML AMP IV PRN
[2023-03-03] MEDS: LACTATED RINGERS 1,000 ML IV SCH (12:27)
[2023-03-03 12:50] LABS: Glucose,Whole Blood 102 mg/dL (70-110)
[2023-03-03] MEDS ORDERED: MIDAZOLAM 2 MG/2 ML VIAL IVP ONE (13:16)
[2023-03-03] MEDS ORDERED: fentaNYL (PF) 50 MCG/ML 2 ML AMP IVP ONE ×2 (13:17→13:21)
[2023-03-03] MEDS ORDERED: PHENYLEPHRINE 10 MG/ML 5 ML VIAL ONE (13:58)
[2023-03-03] MEDS ORDERED: GLYCOPYRROLATE 0.2 MG/ML 2 ML VIAL ONE (13:58)
[2023-03-03] MEDS ORDERED: PROPOFOL 10 MG/ML 20 ML VIAL IV ONE (13:58)
[2023-03-03] MEDS ORDERED: ROCURONIUM 10 MG/ML (5 ML VIAL) IV ONE (13:58)
[2023-03-03] MEDS ORDERED: SUCCINYLCHOLINE CHLORIDE 200 MG/10 ML VIAL IV ONE (13:58)
[2023-03-03] MEDS ORDERED: LIDOCAINE 1% INJ 10MG/ML (20 ML MDV) ONE (13:58)
[2023-03-03] MEDS ORDERED: NEOSTIGMINE 1 MG/ML 10 ML VIAL ONE (13:58)
[2023-03-03] MEDS ORDERED: KETAMINE HCL IN 0.9 % NACL 50 MG/5 ML SYRINGE ONE (13:58)
[2023-03-03] MEDS ORDERED: fentaNYL (PF) 50 MCG/ML 2 ML AMP ONE (13:58)
[2023-03-03] MEDS ORDERED: THROMBIN (BOVINE) 5,000 UNIT VIAL TOPICAL ONE (14:03)
[2023-03-03] MEDS ORDERED: GELATIN SPONGE,ABSORB (LARGE) 1 EACH SPONGE TOPICAL ONE (14:03)
[2023-03-03] MEDS ORDERED: LIDOCAINE 0.5%-EPI 1:200,000 50 ML VIAL SQ ONE (14:03)
--- NOTE | 2023-03-03 15:32 | XR ---
EXAMINATION TYPE: XR cervical spine 1V DATE OF EXAM: 03/03/2023 COMPARISON: NONE HISTORY: Needle placement TECHNIQUE: One view FINDINGS: Endotracheal tube noted. There is hypertrophic degenerative change of the cervical spine. M etallic instrument seen anterior to the mid to lower cervical spine. Facet arthropathy noted. IMPRESSION: Needle placement.
[2023-03-03] MEDS ORDERED: LACTATED RINGERS 1,000 ML IV ONE (15:39)
[2023-03-03] MEDS ORDERED: HYDROcodone/APAP 5-325MG 1 EACH TAB PO PRN (15:43)
[2023-03-03] MEDS ORDERED: ONDANSETRON 4 MG/2 ML VIAL IVP PRN (15:43)
[2023-03-03] MEDS ORDERED: HYDROmorphone 0.5 MG/0.5 ML SYRINGE IVP PRN (15:43)
[2023-03-03] MEDS ORDERED: CYCLOBENZAPRINE 5 MG TAB PO PRN (15:43)
[2023-03-03] MEDS ORDERED: BENZOCAINE/MENTHOL LOZENG 1 EACH LOZENGE MUCOUS MEM PRN (15:43)
--- NOTE | 2023-03-03 15:54 | P.OP ---
Date of Procedure: 03/03/23 Preoperative Diagnosis: Cervical stenosis C3 C5 6 C6 7, herniated nucleus causes C5 6 C6 7, upper extremity radiculopathy, upper extremity weakness, neck pain, degenerative disc disease, Postoperative Diagnosis: Same Anesthesia: GETA Pathology: none sent Condition: stable Disposition: PACU Description of Procedure: BRIEF OPERATIVE NOTE Preoperative Diagnosis:Cervical stenosis C3 C5 6 C6 7, herniated nucleus causes C5 6 C6 7, upper extremity radiculopathy, upper extremity weakness, neck pain, degenerative disc disease Postoperative Diagnosis:Cervical stenosis C3 C5 6 C6 7, herniated nucleus causes C5 6 C6 7, upper extremity radiculopathy, upper extremity weakness, neck pain, degenerative disc disease Procedure: Anterior cervical decompression with discectomy and fusion C5 6 C6 7 Placement of interbody graft C5 6 C6 7 Application of anterior cervical plate C5 6 and 7 Surgeon: Dr. Burnett Registered Clinical Dietitian: Giancarlo Fuentes is present throughout the entire the case persistence during positioning, dissection, exposure, visualization, and all crucial elements of the case as well as closure. Anesthesia: General anesthesia per Dr. Rousseau Estimated blood loss: approximately 50 mL Complications: None apparent Components implanted: Corder [place] K2M anterior cervical plate system with screws and Vikos interbody allograft bone graft and 1 mL of DBX bone putty Disposition: To recovery room in good stable condition. OPERATIVE INDICATIONS The patient has had long-standing issues in their neck and upper extremities. she's been having worsening of her symptoms at her neck and her bilateral upper extremities worse on the left than the right. She's been having significant radiculopathy and was found have disc herniations with stenosis at C5 6 C6 7 was quite well with her neck and upper extremity symptoms. The patient has been through conservative treatment. We discussed various treatment options including surgery, and the patient wishes to proceed with surgery We discussed the risk, patient's alternatives and benefits of surgery including but not limited to, risk of bleeding risk of infection, risk of need for further surgery, risk of decreased, loss of motion, muscle function, malunion nonunion, hardware failure, nerve damage, paralysis, heart attack, and . the patient has been through significant preoperative evaluation preparation and clearance prior to her surgery. She has been cleared by her medical doctor as well as cardiology and has been stabilized in terms of her diabetic and any cardiac issues. OPERATIVE SUMMARY After discussing all the risks, patient alternatives and benefits at length, the patient elected to proceed with surgical intervention, signed informed consent, and presented for their procedure. The patient was seen and examined in the preoperative holding area and the surgical site was marked. The patient was given antibiotics and brought to the operating room. The patient was positioned on the operating room table in a supine position being careful to pad any bony prominences and pressure points. The patient was sedated and intubated by anesthesia in standard fashion. Once the airway and C- spine were stabilized the patient's arms were padded and tucked at her side, with her shoulders gently taped. The head was placed in a donut pad with the neck in good neutral alignment and position. We were careful to maintain the patient's cervical spine and good neutral alignment and position throughout. The patient was prepped and draped in a normal standard fashion. An appropriate timeout and keystone protocol performed. We were able to proceed with the surgery. The local wound area was infiltrated with local anesthetic. An incision was made transversely approximately 2-1/2 cm over the appropriate levels at C6 . Dissection was taken down subcutaneously to the level of the platysma which was split in line with its fibers. Dissection was taken with a carotid approach, with the trachea and esophagus medial and the carotid sheath laterally. We dissected down to the anterior surface of the vertebral bodies. Intraoperative x-ray was taken which showed a marker at the appropriate level. With the appropriate level positively confirmed, we were able to proceed with discectomy at the appropriate levels. All of the operative levels were exposed appropriately C5 6 C6 there are large osteophytes were taken down both levels . The patient had all their twitches back, and there was no evidence of recurrent laryngeal issue. The wound was copiously irrigated and suctioned dry as had been done periodically throughout the case. At the appropriate level/levels, starting at C5 6 and remove any C6 7 I established an annulotomy with an 11 blade scalpel. A discectomy was performed with a combination of pituitary rongeurs, curettes, a high-speed bur, and Kerrison rongeurs. The posterior longitudinal ligament was taken down as were any posterior osteophytes. there is obvious posterior spurring as well as disc herniation and protrusion which was removed with the decompression and discectomy. This gave good central and bilateral foraminal decompression. There is no evidence of any dural tear or leak. The endplates were prepared with a high-speed bur. With the endplates in good parallel position, I was able to size for the appropriate size interbody graft. The wound was irrigated and suctioned dry the graft was prepared and malleted into position. It had good alignment and position with the anterior surface flush with the anterior surface of the vertebral bodies. This was done similarly the appropriate levels. With the grafts intact, I was able to measure and contour and appropriate sized plate. The plate was positioned at the midline over the appropriate levelsat C5 6 and 7 . Screw holes were established with a hand drill and drill guide. Screws were placed in good alignment and position with excellent bony purchase. They were seated under the locking device. The construct was checked and found to be stable. Intraoperative x-ray was taken which showed good alignment and position of the implants at the appropriate levels. There was no evidence of any dural tear or leak. Good hemostasis was maintained. The wound was copiously irrigated and suctioned dry as had been done periodically throughout the case. The platysma was closed with absorbable suture. The subcutaneous tissue was closed. The subcuticular tissue was closed with absorbable suture. The wound was cleaned and dried and dressed appropriately. A soft cervical collar was placed appropriately. The patient was woken up by anesthesia, extubated, transferred back gently to their hospital bed and brought to the recovery room in good stable condition. The patient will be admitted to the hospital for appropriate postoperative care, medical management and monitoring. We will continue to follow them closely about the postoperative course.
--- NOTE | 2023-03-03 16:14 | XR ---
EXAMINATION TYPE: XR cervical spine 1V DATE OF EXAM: 03/03/2023 3:59 PM INDICATION: Patient age:Female; 62 years old; Reason for study: Hardware placement; H. COMPARISON: Cervical spine radiograph 03/03/2023 TECHNIQUE: The cervical spine was imaged in single lateral projection. projections. FINDINGS: Limited evaluation due to single projection. Interval placement of anterior cervical fusion with disc spacers spanning C5-C7. Hardware appears intact with appropriate alignment. Mild preverteb ral soft tissue swelling identified. Multilevel degenerative disease redemonstrated. No acute fractur e or dislocation. Endotracheal tube identified. IMPRESSION: Postsurgical changes from anterior cervical fusion. Hardware appears intact with appropriate alignmen t on this single lateral projection.
[2023-03-03] MEDS: HYDROmorphone 0.5 MG/0.5 ML SYRINGE IVP PRN ×3 (16:16→17:31)
[2023-03-03 17:40] LABS: Glucose,Whole Blood 112 mg/dL (70-110)
[2023-03-03] MEDS: SODIUM CHLORIDE 0.9% 1,000 ML IV SCH (17:53)
[2023-03-03] MEDS ORDERED: INSULIN DETEMIR (LEVEMIR) 100 UNIT/ML SYR SQ SCH (18:00)
[2023-03-03] MEDS ORDERED: DEXTROSE 50% SYRINGE 50 ML IVP PRN ×2 (19:10)
[2023-03-03] MEDS ORDERED: PROCHLORPERAZINE INJ 10 MG/2 ML VIAL IVP PRN (19:39)
[2023-03-03] MEDS ORDERED: HYDROcodone/APAP 5-325MG 1 EACH TAB PO SCH (21:00)
[2023-03-03 21:01] LABS: Glucose,Whole Blood 152 mg/dL (70-110)
[2023-03-03] MEDS: INSULIN ASPART (NovoLOG) 100 UNIT/ML VIAL SQ SCH (21:28)
--- NOTE | 2023-03-03 22:04 | P.CONS ---
History of Present Illness - Reason for Consult Consult date: 03/03/23 Medical management Requesting physician: Amaury Burnett - Chief Complaint Cervical spine surgery - History of Present Illness Pleasant 62-year-old patient who follows with Dr. Amy pierre. Patient been having neck pain for over 6 months. At some pain tingling of the left arm. Patient is a recently diagnosed diabetic peripheral neuropathy. Patient underwent cervical spine surgery today. Has a dressing over the anterior neck. Did tolerate some liquid diet. No nausea vomiting. Some pain present. at the bedside. No chest pain no shortness of breath. Review of systems: GEN.: Tired EYES: None HEENT: None NECK: No trouble swallowing RESPIRATORY: None CARDIOVASCULAR: None GASTROINTESTINAL: None GENITOURINARY: None MUSCULOSKELETAL: As above LYMPHATICS: None HEMATOLOGICAL: None PSYCHIATRY: None NEUROLOGICAL: None Past medical history to include: Cervical stenosis, with radiculopathy left arm, diabetes, peripheral neuropathy Social history: . Smoked for 32 stopped 20 years ago. No alcohol. Physical examination: VITAL SIGNS: 97.2, 84, 16, 120/58, 94% room air GENERAL: BMI 32, declining but awake comfortable. EYES: Pupils equal. Conjunctiva normal. HEENT: External appearance of nose and ears normal, oral cavity grossly normal. NECK: JVD not raised; masses not palpable. Dressing over the anterior neck. HEART: First and second heart sounds are normal; no edema. LUNGS: Respiratory rate normal; clear to auscultation. ABDOMEN: Soft, nontender, liver spleen not palpable, no masses palpable. PSYCH: Alert and oriented x3; mood and affect normal. MUSCULOSKELETAL:No Clubbing/cyanosis;muscles-grossly intact NEUROLOGICAL: Cranial nerves grossly intact; no facial asymmetry, power and sensation grossly intact. LYMPHATICS: No lymph nodes palpable in the axilla and neck INVESTIGATIONS, reviewed in the clinical context: 02/10/2023: White count 7.9 hemoglobin 13.5 platelets 199 sodium 142 potassium 3.8 creatinine 0.8 Assessment and plan: -Cervical stenosis C3 C5 6 C6 7, herniated nucleus causes C5 6 C6 7, upper extremity radiculopathy, upper extremity weakness, neck pain, degenerative disc disease, Procedure: Anterior cervical decompression with discectomy and fusion C5 6 C6 7 Placement of interbody graft C5 6 C6 7 Application of anterior cervical plate C5 6 and 7 -Diabetes mellitus type 2 and oral hypoglycemic Actos.ltresiba Follow Accu-Cheks with sliding scale insulin. -Diabetic peripheral neuropathy Care was discussed with the patient and the at bedside. Questions answered. Pneumatic compression sleeves for DVT prophylaxis. Diet has been ordered. Thank you Past Medical History Past Medical History: Diabetes Mellitus Additional Past Medical History / Comment(s): Peripheral neuropathy bilateral feet, back pain, left arm pain, hx hemorrhoids, hx UTI. History of Any Multi-Drug Resistant Organisms: None Reported Past Surgical History: Back Surgery, Breast Surgery, Cholecystectomy, Orthopedic Surgery Additional Past Surgical History / Comment(s): COLONOSCOPY X3, PARTIAL RIGHT MASTECTOMY(FALSE POSITIVE), RIGHT ROTATOR CUFF REPAIR. Past Anesthesia/Blood Transfusion Reactions: No Reported Reaction Past Psychological History: No Psychological Hx Reported Additional Psychological History / Comment(s): lives with her . Works for a local company in the office. International travel was to [place] related to her work several years ago no illness while she was there upon her return. Is a tobacco smoker has a patch on at this time. No stated alcohol use and no history of injection recreational drug use. 2 pet Cats in the home that have been there for many years. Smoking Status: Unknown if ever smoked Past Alcohol Use History: Rare Additional Past Alcohol Use History / Comment(s): Started smoking about 1987, less than a ppd smoker, quit in 2019. Past Drug Use History: None Reported - Past Family History Daughter(s) Additional Family Medical History / Comment(s): PRE- OVARIAN CANCER. Mother Family Medical History: Cancer, Hyperlipidemia, Hypertension Additional Family Medical History / Comment(s): Colon cancer. Father Family Medical History: Diabetes Mellitus, Hyperlipidemia, Hypertension Additional Family Medical History / Comment(s): Heart disease. Medications and Allergies Home Medications Medication Instructions Recorded Confirmed Type HYDROcodone/APAP 5-325MG [Tranquillity 1 tab PO HS 02/26/23 03/03/23 History 5-325] Insulin Degludec [Tresiba] 38 units SQ 1700 02/26/23 03/03/23 History Pioglitazone [Actos] 30 mg PO DAILY 02/26/23 03/03/23 History Allergies Allergy/AdvReac Type Severity Reaction Status Date / Time bee venom protein (honey bee) Allergy Anaphylaxis Verified 03/03/23 12:31 Physical Exam Vitals: Vital Signs Temp Pulse Resp BP Pulse Ox 03/03/23 17:54 93 16 122/67 95 03/03/23 17:25 94 16 143/69 98 03/03/23 16:55 82 16 124/58 94 L 03/03/23 16:40 80 16 126/72 93 L 03/03/23 16:25 84 16 124/58 94 L 03/03/23 16:10 82 16 143/72 98 03/03/23 15:55 97.2 F L 105 H 14 158/70 99 03/03/23 13:30 92 14 102/62 98 03/03/23 12:33 97.0 F L 99 18 133/61 99 Intake and Output 03/03/23 03/03/23 03/03/23 06:59 14:59 22:59 Intake Total 1051 500 Output Total 50 Balance 1051 450 Intake: IV 1051 500 Output: Estimated Blood Loss 50 Other: Weight 90 kg 90 kg Results Labs: Abnormal Lab Results - Last 24 Hours (Table) 03/03/23 03/03/23 Range/Units 17:37 21:01 POC Glucose (mg/dL) 112 H 152 H (70-110) mg/dL
[2023-03-04] MEDS: SODIUM CHLORIDE 0.9% 1,000 ML IV SCH (02:04)
[2023-03-04 05:34] LABS: Glucose,Whole Blood 168 mg/dL (70-110)
[2023-03-04] MEDS: INSULIN ASPART (NovoLOG) 100 UNIT/ML VIAL SQ SCH ×2 (06:35→11:55)
[2023-03-04] MEDS: LACTATED RINGERS 1,000 ML IV SCH (06:35)
[2023-03-04] MEDS ORDERED: SENNOSIDES-DOCUSATE SODIUM 1 EACH TAB PO SCH ×2 (09:00)
[2023-03-04] MEDS ORDERED: PIOGLITAZONE 30 MG TAB PO SCH (09:00)
[2023-03-04 09:21] VITALS: BP 103/56; PULSE 111; TEMP 98.2
--- NOTE | 2023-03-04 10:25 | P.DS ---
Providers Date of admission: 03/03/23 Attending physician: Amaury Burnett Consults: 03/03/23 18:32 Consult Physician Routine Consulting Provider: Brandyn Terrell Consult Reason/Comments: medical managment Do you want consulting provider notified?: Yes Primary care physician: Stated None Hospital Course: The patient presented on the day of admission as per their operative note. She feels her arms are doing well. She's been able to tolerate a regular diet. She had some nausea postoperatively that is resolved. She has been up and around and using the bathroom appropriately. Physical Exam The incision site is clean dry and intact. There is no erythema no drainage. There is no purulence no evidence of infection. Her neck is soft and supple. Abdomen soft and nontender. Chest has good excursion with deep inspiration and expiration. The patient has active and passive range of motion intact at the upper and lower extremities. There is no acute change in neurologic status. She has good mo tion in her bilateral upper extremities Hospital Course Postoperative day #1 status post anterior cervical decompression with discectomy and fusion at C5 6 C6 7 for her cervical stenosis with herniated disc and upper extremity radiculopathy. Patient is doing very well postoperatively and is happy with results thus far. Her nausea has resolved. The patient has been making good progress postoperatively. They have completed the prophylactic antibiotics without any signs or symptoms of infection. The patient has been able to advance their diet, and is tolerating diet adequately. The pain was initially controlled with IV medications and is now controlled appropriately with oral medications. The patient has been able to increase their mobilization. The patient has progressed appropriately. I think they are in good stable condition for discharge today. They will be sent home with appropriate prescriptions. I answered their questions to the best of my ability in a language that they can understand and they are agreeable with the plan. They will follow up as directed. Patient Condition at Discharge: Good Plan - Discharge Summary Discharge Rx Participant: No New Discharge Prescriptions: New HYDROcodone/APAP 5-325MG [[place] 5-325] 1 tab PO Q4HR PRN 3 Days #18 tab PRN Reason: Pain No Action Pioglitazone [Actos] 30 mg PO DAILY HYDROcodone/APAP 5-325MG [[place] 5-325] 1 tab PO HS Insulin Degludec [Tresiba] 38 units SQ 1700 Discharge Medication List HYDROcodone/APAP 5-325MG [[place] 5-325] 1 tab PO HS 02/26/23 [History] Insulin Degludec [Tresiba] 38 units SQ 1700 02/26/23 [History] Pioglitazone [Actos] 30 mg PO DAILY 02/26/23 [History] HYDROcodone/APAP 5-325MG [[place] 5-325] 1 tab PO Q4HR PRN 3 Days #18 tab 03/04/23 [Rx] Follow up Appointment(s)/Referral(s): Amaury Burnett DO [Doctor of Osteopathic Medicine] - 2 Weeks (Please call and confirm appointment) Activity/Diet/Wound Care/Special Instructions: Keep site clean. May shower with waterproof Tegaderm intact. Do not soak in a tub. After 72 hours postoperatively, patient May remove dressing and then may shower with area uncovered. Leave glue intact and allow it to fray off on its own. May ambulate as tolerated. Avoid heavy or rigorous activity. No repetitive bending twisting or lifting. No overhead work. Discharge Disposition: HOME SELF-CARE
[2023-03-04 10:41] VITALS: RESP 20
[2023-03-04 11:17] LABS: Glucose,Whole Blood 170 mg/dL (70-110)
--- NOTE | 2023-03-04 18:59 | P.PN ---
Progress Note - Text Progress Note Date: 03/04/23 - Chief Complaint Cervical spine surgery - History of Present Illness Pleasant 62-year-old patient who follows with Dr. Amy pierre. Patient been having neck pain for over 6 months. At some pain tingling of the left arm. Patient is a recently diagnosed diabetic peripheral neuropathy. Patient underwent cervical spine surgery today. Has a dressing over the anterior neck. Did tolerate some liquid diet. No nausea vomiting. Some pain present. at the bedside. No chest pain no shortness of breath. March 04: Doing better. Did walk to the bathroom. Left arm pain and numbness better. Did tolerate some diet. Questions answered. Past medical history to include: Cervical stenosis, with radiculopathy left arm, diabetes, peripheral neuropathy Social history: . Smoked for 32 stopped 20 years ago. No alcohol. Physical examination: VITAL SIGNS: Weight 8.2, 101, 19, 103/56, 97% room air GENERAL: In bed, comfortable EYES: Pupils equal. Conjunctiva normal. HEENT: External appearance of nose and ears normal, oral cavity grossly normal. NECK: JVD not raised; masses not palpable. Dressing over the anterior neck. HEART: First and second heart sounds are normal; no edema. LUNGS: Respiratory rate normal; clear to auscultation. ABDOMEN: Soft, nontender, liver spleen not palpable, no masses palpable. PSYCH: Alert and oriented x3; mood and affect normal. MUSCULOSKELETAL:No Clubbing/cyanosis;muscles-grossly intact NEUROLOGICAL: Cranial nerves grossly intact; no facial asymmetry, power and sensation grossly intact. INVESTIGATIONS, reviewed in the clinical context: 02/10/2023: White count 7.9 hemoglobin 13.5 platelets 199 sodium 142 potassium 3.8 creatinine 0.8 Assessment and plan: -Cervical stenosis C3 C5 6 C6 7, herniated nucleus causes C5 6 C6 7, upper extremity radiculopathy, upper extremity weakness, neck pain, degenerative disc disease, Procedure: Anterior cervical decompression with discectomy and fusion C5 6 C6 7 Placement of interbody graft C5 6 C6 7 Application of anterior cervical plate C5 6 and 7 -Diabetes mellitus type 2 and oral hypoglycemic Actos.[email or web address] Follow Accu-Cheks with sliding scale insulin. -Diabetic peripheral neuropathy discussed with the patient . Follow with PCP upon discharge Thank you
== END 2023-03-04 13:37 | disposition home or self-care (01) ==
LOC: OR 11:44 → 4SSUR 15:55 → OR 03-04 13:37
PROVIDERS: ATTEND Orthopaedic Surgery Orthopaedic Surgery of the Spine
DX: M50.123 Cervical disc disorder at C6-C7 level with radiculopathy (principal); M48.02 Spinal stenosis, cervical region; E11.42 Type 2 diabetes mellitus with diabetic polyneuropathy; Z98.890 Other specified postprocedural states; Z79.84 Long term (current) use of oral hypoglycemic drugs; Z79.899 Other long term (current) drug therapy
CPT/HCPCS: 22551; 22552; 83036; 72020; C1713 ×2; C1762; J2250; J0780; J0690 ×3; J2405; J3010; J1170

== ENCOUNTER → 2023-09-30 | Outpatient (CLI) | payer BC ==
--- NOTE | 2023-10-01 10:04 | US ---
EXAMINATION TYPE: US thyroid st tissue head/neck DATE OF EXAM: 09/30/2023 COMPARISON: US 07/10/2020 CLINICAL INDICATION: Female, 63 years old with history of E04.1 NONTOXIC SINGLE THYROID NODUE R60.0 E BRIANA; Nodule, Hx FNA. GLAND SIZE: Right Lobe: 6.3 x 2.5 x 2.3 cm Overall Parenchyma: heterogeneous Left Lobe: 6.5 x 2.2 x 1.9 cm Overall Parenchyma: heterogeneous Isthmus Thickness: 0.31 cm NODULES RIGHT: # of nodules measured on right: 3 1. 1.6 X 1.5 x 1.3 cm, mid mid, solid or almost completely solid, hypoechoic nodule, which is wider than tall, with smooth margins, without echogenic foci. Prior size: Cannot correlate with certainty 2. 2.1 X 2.0 x 1.5 cm, lower mid, solid or almost completely solid, hypoechoic nodule, which is wid er than tall, with smooth margins, without echogenic foci. Prior size: Cannot correlate with certainty 3. 1.1 X 1.2 x 0.7 cm, mid mid, mixed cystic and solid, anechoic nodule, which is wider than tall, with smooth margins, with echogenic foci. Prior size: Not seen on prior LEFT: # of nodules measured on left: 2 1. 1.1 X 0.9 x 0.7 cm, upper mid, cystic or almost completely cystic, anechoic nodule, which is wid er than tall, with smooth margins, without echogenic foci. Prior size: Cannot correlate with certainty 2. 2.8 X 2.9 x 1.8 cm, lower mid, solid or almost completely solid, hypoechoic nodule, which is wi irgo than tall, with smooth margins, with echogenic foci. Prior size: 2.2 x 2.0 x 1.2 cm ISTHMUS: # of nodules measured in the isthmus: 0 Bilateral neck scanned, no evidence of lymphadenopathy. IMPRESSION: 1. Mild thyromegaly. 2. Multiple bilateral thyroid nodules, 3 on the right and 2 on the left. 3. 2 TR 4 nodules in the right lobe one measuring approximately 2.1 cm in greatest dimension and the other measuring approximate 1.6 cm in greatest dimension. Fine needle aspiration is recommended for b oth. 4. Growing TR for nodule in the left lower pole which has increased in size from 2.2 cm to 2.9 cm. Fi ne-needle aspiration is recommended. 2017 ACR TI-RADS LEVEL: 3 mildly suspicious TR 4 nodules *Highest TI-RADS level nodule reported
--- NOTE | 2023-10-01 10:13 | US ---
EXAMINATION TYPE: US venous doppler duplex LE BI DATE OF EXAM: 09/30/2023 4:11 PM COMPARISON: NONE CLINICAL INDICATION: Female, 63 years old with history of E04.1 NONTOXIC SINGLE THYROID NODUE R60.0 E BRIANA; Edema x 5 months. No hx of DVT. Patient does not take blood thinners. SIDE PERFORMED: Bilateral TECHNIQUE: The lower extremity deep venous system is examined utilizing real time linear array sonog jose with graded compression, doppler sonography and color-flow sonography. VESSELS IMAGED: Common Femoral Vein Deep Femoral Vein Greater Saphenous Vein * Femoral Vein Popliteal Vein Small Saphenous Vein * Proximal Calf Veins (* superficial vessels) Right Leg: No evidence of DVT. Hypoechoic area seen within the right groin adjacent to the CFV angélica surin.4 x 1.8 x 0.9 cm. Left Leg: No evidence of DVT. The deep venous systems of both lower extremities from the common femoral veins to the proximal calf veins are patent, compressible, with augmentable flow and normal waveforms. IMPRESSION: 1. No evidence of bilateral lower extremity DVT from the common femoral veins to the proximal calf ve ins. 2. Benign-appearing 2.4 cm hypoechoic mass in the right groin of indeterminate etiology. Questionable enlarged lymph node. CT of abdomen and pelvis clinically indicated.
== END | disposition home or self-care (01) ==
LOC: RADUSWWP 14:50
PROVIDERS: ATTEND Family Medicine
DX: E04.2 Nontoxic multinodular goiter (principal); N94.89 Other specified conditions associated with female genital organs and menstrual cycle; R60.0 Localized edema
CPT/HCPCS: 76536; 93970

== ENCOUNTER 2023-11-18 08:33 | Day surgery (SDC) | payer BC ==
[2023-11-18 09:00] LABS: Glucose,Whole Blood 227 mg/dL (70-110)
[2023-11-18 09:09] VITALS: RESP 16; TEMP 97.8
--- NOTE | 2023-11-18 10:04 | US ---
ULTRASOUND GUIDED FNA THYROID BIOPSY: CLINICAL HISTORY: Request for 2 right-sided and one left-sided thyroid nodules for total of 3 FNA bio psy FINDINGS: The procedure was explained to the patient. The risks, complications, benefits and alternatives were discussed and any questions were answered. Informed consent was obtained. Patient was placed supin e on the ultrasound table and prepped and draped in the usual sterile fashion. Utilizing a 25 gauge needle, five passes were made into the requested 2 right-sided and requested left-sided single nodule for a total of 3 thyroid nodules. Patient was stable throughout the procedure. Pathology is pending. All elements of maximal barrier technique were utilized. IMPRESSION: 1. Successful ultrasound guided FNA thyroid biopsy.
[2023-11-18 10:11] VITALS: BP 129/80; PULSE 98
== END 2023-11-18 10:16 | disposition home or self-care (01) ==
LOC: RADPROMAIN 08:33
PROVIDERS: ATTEND Family Medicine
DX: E04.2 Nontoxic multinodular goiter (principal)
CPT/HCPCS: 10005; 10006; 88173; 88305

== ENCOUNTER → 2023-11-24 | Outpatient (CLI) | payer BC ==
[2023-11-24 08:31] LABS: African American GFR (CKD) >90 (>60 ml/min/1.73 sqM); Blood Urea Nitrogen 14 mg/dL (7-17); Non-African American GFR(CKD) >90 (>60 ml/min/1.73 sqM)
--- NOTE | 2023-11-24 12:41 | CT ---
EXAMINATION TYPE: CT abdomen pelvis w con DATE OF EXAM: 11/24/2023 COMPARISON: 04/29/2018 HISTORY: enlarged lymph nodes CT DLP: 1690 mGycm CONTRAST: CT scan of the abdomen and pelvis is performed with Oral Contrast and with IV Contrast, patient injec jenna with 100ml mL of Isovue 300. FINDINGS: LUNG BASES-: No visible nodule. No infiltrate. LIVER/GB: No calcified gallstones. No space occupying hepatic lesion. Biliary tree is of normal ca liber. PANCREAS: No inflammation. No distinct mass. SPLEEN: No splenic enlargement. No lesion seen. ADRENALS: No nodule. No thickening. KIDNEYS/BLADDER: No hydronephrosis. No nephrolithiasis. No distinct renal mass. Urinary bladder g rossly unremarkable. BOWEL: Normal appendix. Normal bowel caliber. No inflammation. GENITAL ORGANS: No gross abnormality. LYMPH NODES: No greater than 1cm abdominal or pelvic lymph nodes are appreciated. AORTA: No significant abnormality. OSSEOUS STRUCTURES: No significant abnormality is seen. OTHER: No significant additional abnormality is seen. IMPRESSION: 1. No significant abnormality to account for the patient's symptoms.
== END | disposition home or self-care (01) ==
LOC: RADCTMAIN 07:55
PROVIDERS: ATTEND Family Medicine
DX: R19.00 Intra-abdominal and pelvic swelling, mass and lump, unspecified site (principal)
CPT/HCPCS: 82565; 84520; 74177; 36415; Q9967

== ENCOUNTER → 2024-11-02 | Outpatient (CLI) | payer BC ==
--- NOTE | 2024-11-02 15:18 | US ---
EXAMINATION TYPE: US thyroid st tissue head/neck DATE OF EXAM: 11/02/2024 COMPARISON: US 09/30/2023 FNA 11/18/2023 CLINICAL INDICATION: Female, 64 years old with history of E042 MULTINODULAR GOITER; Patient denies an y changes from prior TECHNIQUE: Grayscale and color Doppler imaging of the thyroid gland. FINDINGS: GLAND SIZE: Right Lobe: 5.0 x 2.0 x 2.4 cm Overall Parenchyma: homogeneous Left Lobe: 5.8 x 2.3 x 2.8 cm Overall Parenchyma: homogeneous Isthmus Thickness: cm NODULES RIGHT: # of nodules measured on right: 3 - multiple others noted - ? changed from prior 1. 1.5 X 0.9 x 1.2 cm, upper lateral, Prior size: 1.6 x 1.3 x 1.5 cm TIRADS Score: 3 TIRADS Category 3 Composition: Solid or almost completely solid (2 points). Echogenicity: Hyperechoic or isoechoic (1 point). Shape: Wider than tall (0 points). Margin: Ill-defined (0 points). Echogenic foci: None or large comet-tail artifacts (0 points) Recommendation: If >2.5cm: FNA; If >1.5cm: Follow up at 1,3,5 years 2. . 1.8 X 1.1 x 1.5 cm, mid mid, Prior size: 2.1 x 1.5 x 2.0 cm TIRADS Score: 3 TIRADS Category 3 Composition: Solid or almost completely solid (2 points). Echogenicity: Hyperechoic or isoechoic (1 point). Shape: Wider than tall (0 points). Margin: Ill-defined (0 points). Echogenic foci: None or large comet-tail artifacts (0 points) Recommendation: If >2.5cm: FNA; If >1.5cm: Follow up at 1,3,5 years 3. 1.5 X 1.1 x 1.4 cm, lower lateral, Prior size: 1.1 x 0.7 x 1.2 cm TIRADS Score: 3 TIRADS Category 3: Composition: Solid or almost completely solid (2 points). Echogenicity: Hyperechoic or isoechoic (1 point). Shape: Wider than tall (0 points). Margin: Ill-defined (0 points). Echogenic foci: None or large comet-tail artifacts (0 points) Recommendation: If >2.5cm: FNA; If >1.5cm: Follow up at 1,3,5 years LEFT: # of nodules measured on left: 2 - few others noted - seen on prior 1. 1.3 X 0.7 x 0.8 cm, upper lateral, Prior size: 1.1 x 0.7 x 0.9 cm TIRADS Score: 0 TIRADS Category 1: Composition: Cystic or almost completely cystic (0 points). Recommendation: No FNA 2. 2.4 X 1.7 x 2.6 cm, mid mid, Prior size: 2.8 x 1.8 x 2.9 cm TIRADS Score: 2 TIRADS Category 2: Composition: Mixed cystic and solid (1 point). Echogenicity: Hyperechoic or isoechoic (1 point). Shape: Wider than tall (0 points). Margin: Smooth (0 points). Echogenic foci: None or large comet-tail artifacts (0 points) Recommendation: No FNA ISTHMUS: # of nodules measured in the isthmus: 0 Bilateral neck scanned, multiple hypoechoic nodules noted Hard to follow nodules due to amount present bilaterally. IMPRESSION: Bilateral thyroid nodules which meet criteria for follow-up. Highest TI-RADS level nodule reported: 2017 ACR TI-RADS LEVEL: TI-RADS 3 - Mildly Suspicious: Follow if > 1.5 cm, FNA if > 2.5 cm TI-RADS assessment score and recommendation for follow-up based on appropriate scoring and treatment protocols. TR1 Benign No FNA TR2 Not suspicious No FNA TR3: If nodule size is ? 2.5 cm, FNA is recommended. If nodule size is ? 1.5 cm, follow-up imaging at 1, 3, and 5 years is recommended. TR4: If nodule size is ? 1.5 cm, FNA is recommended. If nodule size is ? 1.0 cm, follow-up imaging at 1, 2, 3, and 5 years is recommended. TR5: If nodule size is ? 1.0 cm, FNA is recommended. If nodule size is ? 0.5 cm, annual follow-up for up to 5 years is recommended. TR 1 thyroid nodules have a 0.3 % risk of malignancy. TR 2 thyroid nodules have a 1.5 % risk of malignancy. TR 3 thyroid nodules have a 4.8 % risk of malignancy. TR 4 thyroid nodules have a 9.1 % risk of malignancy. TR 5 thyroid nodules have a 35 % risk of malignancy. [email or web address] [facility], , 11/02/2024 3:15 PM
--- NOTE | 2024-11-02 15:34 | MM ---
Reason for Exam: Screening (asymptomatic). Last mammogram was performed 6 year(s) and 0 month(s) ago. Patient History: Menarche at age 9. First Full-Term at age 23. Postmenopausal. Patient used Hormonal Contraceptives for 6 years. 2008, Lumpectomy on the Right side. 11/05/2017, Benign Core Biopsy on the left side. Paternal grandmother had breast cancer. Risk Values: Bety 5 year model risk: 1.8%. NCI Lifetime model risk: 7.7%. Prior Study Comparison: 10/29/2017 Left Diagnostic Mammogram, [facility]. 05/11/2018 Left Diagnostic Mammogram, [facility]. 10/26/2018 Bilateral Screening Mammogram, [facility]. Tissue Density: The breasts are heterogeneously dense, which may obscure small masses. Findings: Analyzed By CAD. Posttreatment changes with surgical clips an distortion in the right breast is redemonstrated. Biopsy clip left breast again seen. There is no suspicious group of microcalcifications or new suspicious mass in either breast. Overall Assessment: Incomplete: need additional imaging evaluation, BI-RAD 0 Management: Diagnostic Breast Ultrasound of the left breast. Advise targeted ultrasound as patient reports new left breast lump for 2 weeks. Patient should continue monthly self-breast exams. A clinical breast exam by your physician is recommended on an annual basis. This exam should not preclude additional follow-up of suspicious palpable abnormalities. Note on Bety scores and lifetime risk: 1. A Bety score greater than 3% is considered moderate risk. If this is the case, consider specialist referral to assess eligibility for a risk reducing agent. 2. If overall lifetime risk for the development of breast cancer is 20% or higher, the patient may qualify for future screening with alternating mammogram and breast MRI. [facility], , 11/02/2024 3:31 PM. Electronically signed and approved by: Quinten Webb M.D.
== END | disposition home or self-care (01) ==
LOC: RADUSWWP 14:34
PROVIDERS: ATTEND Family Medicine
DX: Z12.31 Encounter for screening mammogram for malignant neoplasm of breast (principal); E04.2 Nontoxic multinodular goiter; R92.333 Mammographic heterogeneous density, bilateral breasts; Z78.0 Asymptomatic menopausal state; Z80.3 Family history of malignant neoplasm of breast; Z92.0 Personal history of contraception
CPT/HCPCS: 76536; 77067

== ENCOUNTER → 2024-11-06 | Outpatient (CLI) | payer BC ==
--- NOTE | 2024-11-06 08:34 | USB ---
Reason for Exam: Clinical finding. Patient History: Menarche at age 9. First Full-Term at age 23. Postmenopausal. Patient used Hormonal Contraceptives for 6 years. 2008, Lumpectomy on the Right side. 11/05/2017, Benign Core Biopsy on the left side. Paternal grandmother had breast cancer. Risk Values: Bety 5 year model risk: 1.8%. NCI Lifetime model risk: 7.7%. Technique: Method: Targeted. Prior Study Comparison: 05/11/2018 Left Diagnostic Mammogram, [facility]. 10/26/2018 Bilateral Screening Mammogram, [facility]. 11/02/2024 Bilateral MG screening mammo w CAD, [facility]. Findings: The lateral section of the breast of the left breast, the axilla of the left breast and the retroareolar of the left breast were scanned. No solid or cystic masses are identified. Normal-appearing lymph node noted. Overall Assessment: Benign, BI-RAD 2 Management: Screening Mammogram of both breasts in 1 year. A clinical breast exam by your physician is recommended on an annual basis and results should be correlated with mammographic findings. This exam should not preclude additional follow-up of suspicious palpable abnormalities. Results were given to the patient verbally at the time of exam. [facility], , 11/06/2024 8:30 AM. Electronically signed and approved by: Elias Menendez M.D. [facility]
== END | disposition home or self-care (01) ==
LOC: RADUSWWP 08:06
PROVIDERS: ATTEND Family Medicine
DX: R92.8 Other abnormal and inconclusive findings on diagnostic imaging of breast (principal); Z78.0 Asymptomatic menopausal state; Z80.3 Family history of malignant neoplasm of breast; Z92.0 Personal history of contraception